=== PATIENT | female | born 1995 | race Caucasian/White ===

== ENCOUNTER 2019-12-29 13:36 | Emergency (ER) | payer OTHER ==
[2019-12-29 15:31] LABS: BLOOD UREA NITROGEN,BUN 18 mg/dL (7.0-18.0); CARBON DIOXIDE,CO2 25.6 mmol/L (21.0-32.0); CHLORIDE,CL 105 mmol/L (98-107); GLUCOSE RANDOM 84 mg/dL (74-106); SODIUM,NA 139 mmol/L (136-145)
--- NOTE | 2019-12-29 16:23 | CR ---
Chest: AP view of the chest was obtained. Comparison: No prior chest imaging. Heart size and mediastinum are normal. Lungs are clear with no acute parenchymal age. Bony structures are unremarkable. Impression: 1. Nothing acute is seen on AP chest x-ray. Diagnostic code #1 This report was dictated in MDT
--- NOTE | 2019-12-29 16:24 | EDM.PDOC ---
ED HPI GENERAL MEDICAL PROBLEM - General Chief Complaint: Respiratory Problem Stated Complaint: SOB Time Seen by Provider: 12/29/19 13:41 Source of Information: Reports: Patient History Limitations: Reports: No Limitations - History of Present Illness INITIAL COMMENTS - FREE TEXT/NARRATIVE: 24-year-old female with no past medical history presenting with complaints of shortness of breath, body aches, headache, and dental/facial pain. She reports a 4-day history of mild shortness of breath, not exertional in nature. Also reports body aches and intermittent headaches, no headache at the moment. No recent international travel or known COVID exposure. She does report about 3 to 4 days of right-sided upper dental pain that radiates to her right ear and the right side of her neck. No self treatment prior to arrival, no other complaints. right jaw Pain Score (Numeric/FACES): 5 - Related Data Allergies Allergy/AdvReac Type Severity Reaction Status Date / Time codeine Allergy Anaphylactic Verified 12/29/19 14:07 Shock epinephrine Allergy Other Verified 12/29/19 14:07 Home Meds: Home Meds Amoxicillin/Potassium Clav [Augmentin 875-125 Tablet] 1 each PO BID 10 Days #20 tablet 12/29/19 [Rx] Past Medical History - Past Health History Medical/Surgical History: Denies Medical/Surgical History - Infectious Disease History Infectious Disease History: Reports: Chicken Pox - Past Surgical History HEENT Surgical History: Reports: Tonsillectomy Other Musculoskeletal Surgeries/Procedures:: 6 leg surgery and 2 elbow Social & Family History - Family History Family Medical History: Noncontributory - Tobacco Use Smoking Status *Q: Never Smoker ED ROS GENERAL - Review of Systems Review Of Systems: See Below Constitutional: Reports: Malaise. Denies: Fever, Chills HEENT: Reports: Dental Pain, Ear Pain. Denies: Nose Pain, Rhinitis, Sinus Problem, Throat Pain, Throat Swelling Respiratory: Reports: Shortness of Breath. Denies: Wheezing, Pleuritic Chest Pain, Cough, Hemoptysis Cardiovascular: Denies: Chest Pain GI/Abdominal: Denies: Abdominal Pain, Nausea, Vomiting : Denies: Flank Pain Musculoskeletal: Denies: Neck Pain Skin: Denies: Rash Neurological: Reports: Headache. Denies: Numbness, Paresthesia, Change in Speech ED EXAM, GENERAL - Physical Exam Exam: See Below Free Text/Narrative:: Vital signs reviewed. Nursing notes reviewed. Constitutional: Awake, alert, non-distressed. Head: Normocephalic, atraumatic. Eyes: EOMI, conjunctiva normal, no discharge, no scleral icterus. Ears, Nose, Throat: External ears and nose normal, moist oral mucosa. Right TM and EAC appear normal. Uvula midline. Examination of the oral cavity reveals no evidence of swelling, no periapical abscess, soft floor of the mouth. No pain with tracheal tug. Handling secretions that difficulty. Neck: Supple, full range of motion. Cardiovascular: 2+ radial pulse, capillary refill less than 2 seconds. Pulmonary: normal work of breathing, no accessory muscle use. CTA BL. Abdomen/GI: nondistended Musculoskeletal: No deformities. Integumentary: Appropriate color for ethnicity, warm, dry, no pallor or jaundice, no rash. Neurologic: Alert, answering questions appropriately, normal speech, no facial droop, moving all extremities well. Psychiatric: Appropriate mood and affect, normal thought process. EKG INTERPRETATION EKG Interpretation Comments: 12-Lead ECG Interpretation Acquired: 2:01 PM Rhythm: Sinus arrhythmia Rate: 71 bpm [place]: Normal Intervals: Normal Ectopy: None Ischemic Changes: None apparent RV Strain: No obvious RV strain pattern. ST Segments/T-Waves: No notable changes Interpretation: Unremarkable Course - Vital Signs Text/Narrative:: Patient hemodynamically stable, afebrile, well-appearing, looks nontoxic. Differential diagnosis includes but is not limited to: Pneumonia, pneumothorax, pulmonary embolism, pleural effusion, acute coronary syndrome, coronavirus infection, anemia, cardiac valvular disturbance, arrhythmia, acute viral syndrome, etc. Laboratory work-up is reassuring. Negative troponin. Negative COVID testing. Normal hemoglobin. Normal electrolytes. Chest x-ray is clear. Twelve-lead EKG appears nonischemic. No evidence of a pulmonary infiltrate to suggest a pneumonia. Low risk by Wells PE criteria, PERC negative. Auscultation of heart and lungs unremarkable. Suspect an acute viral syndrome but patient is well- appearing at this moment. Examination of the oropharynx is concerning for acute pulpitis but there is no evidence of a serious infection or periapical abscess that requires drainage. We will prescribe a one-week course of Augmentin and recommend follow-up with a dental clinic. [id number] Tylenol and Motrin as needed for pain. Plan: Patient is stable to discharge home with outpatient primary care and dentistry follow-up. Strict emergency department return precautions were provided, patient indicated understanding. All questions were answered prior to departure. Discharged in good condition. Wells' Criteria for Pulmonary Embolism RESULT SUMMARY: 0.0 points Low risk group: 1.3% chance of PE in an ED population. Another study assigned scores ? 4 as PE Unlikely and had a 3% incidence of PE. INPUTS: Clinical signs and symptoms of DVT > 0 = No PE is #1 diagnosis OR equally likely > 0 = No Heart rate > 100 > 0 = No Immobilization at least 3 days OR surgery in the previous 4 weeks > 0 = No Previous, objectively diagnosed PE or DVT > 0 = No Hemoptysis > 0 = No Malignancy w/ treatment within 6 months or palliative > 0 = No PERC Rule for Pulmonary Embolism RESULT SUMMARY: 0 criteria No need for further workup, as <2% chance of PE. If no criteria are positive and clinicians pre-test probability is <15%, PERC Rule criteria are satisfied. INPUTS: Age ?50 > 0 = No HR ?100 > 0 = No O? sat on room air > 0 = No Unilateral leg swelling > 0 = No Hemoptysis > 0 = No Recent surgery or trauma > 0 = No Prior PE or DVT > 0 = No Hormone use > 0 = No Last Recorded V/S: Last Vital Signs Temp 37.7 C 12/29/19 13:36 Pulse 99 12/29/19 13:36 Resp 16 12/29/19 13:36 BP 120/71 12/29/19 16:48 Pulse Ox 98 12/29/19 13:36 - Orders/Labs/Meds Orders: Active Orders 24 hr Category Date Time Status EKG 12 Lead [EKG Documentation Completion] [RC] STAT Care 12/29/19 13:47 Active Isolation [COMM] Stat Oth 12/29/19 14:46 Active Labs: Laboratory Tests 12/29/19 12/29/19 12/29/19 Range/Units 14:57 14:57 14:57 WBC 6.25 (4.0-11.0) K/uL RBC 4.76 (4.30-5.90) M/uL Hgb 14.3 (12.0-16.0) g/dL Hct 44.0 (36.0-46.0) % MCV 92.4 (80.0-98.0) fL MCH 30.0 (27.0-32.0) pg MCHC 32.5 (31.0-37.0) g/dL RDW Std Deviation 44.0 (28.0-62.0) fl RDW Coeff of Mabel 13 (11.0-15.0) % Plt Count 294 (150-400) K/uL MPV 10.40 (7.40-12.00) fL Neut % (Auto) 63.5 (48.0-80.0) % Lymph % (Auto) 23.5 (16.0-40.0) % [place] % (Auto) 11.4 (0.0-15.0) % Eos % (Auto) 1.3 (0.0-7.0) % Baso % (Auto) 0.3 (0.0-1.5) % Neut # (Auto) 4.0 (1.4-5.7) K/uL Lymph # (Auto) 1.5 (0.6-2.4) K/uL [place] # (Auto) 0.7 (0.0-0.8) K/uL Eos # (Auto) 0.1 (0.0-0.7) K/uL Baso # (Auto) 0.0 (0.0-0.1) K/uL Nucleated RBC % 0.0 /100WBC Nucleated RBCs # 0 K/uL Sodium 139 (136-145) mmol/L Potassium 4.0 (3.5-5.1) mmol/L Chloride 105 (98-107) mmol/L Carbon Dioxide 25.6 (21.0-32.0) mmol/L BUN 18 (7.0-18.0) mg/dL Creatinine 0.7 (0.6-1.0) mg/dL Est Cr Clr Drug Dosing 100.74 mL/min Estimated GFR (MDRD) > 60.0 ml/min Glucose 84 (74-106) mg/dL Calcium 9.2 (8.5-10.1) mg/dL Troponin I < 0.050 (0.000-0.056) ng/mL HCG, Qual NEGATIVE (NEG) COVID-19 (YAMIL) (NEGATIVE) 12/29/19 Range/Units 16:12 WBC (4.0-11.0) K/uL RBC (4.30-5.90) M/uL Hgb (12.0-16.0) g/dL Hct (36.0-46.0) % MCV (80.0-98.0) fL MCH (27.0-32.0) pg MCHC (31.0-37.0) g/dL RDW Std Deviation (28.0-62.0) fl RDW Coeff of Mabel (11.0-15.0) % Plt Count (150-400) K/uL MPV (7.40-12.00) fL Neut % (Auto) (48.0-80.0) % Lymph % (Auto) (16.0-40.0) % [place] % (Auto) (0.0-15.0) % Eos % (Auto) (0.0-7.0) % Baso % (Auto) (0.0-1.5) % Neut # (Auto) (1.4-5.7) K/uL Lymph # (Auto) (0.6-2.4) K/uL [place] # (Auto) (0.0-0.8) K/uL Eos # (Auto) (0.0-0.7) K/uL Baso # (Auto) (0.0-0.1) K/uL Nucleated RBC % /100WBC Nucleated RBCs # K/uL Sodium (136-145) mmol/L Potassium (3.5-5.1) mmol/L Chloride (98-107) mmol/L Carbon Dioxide (21.0-32.0) mmol/L BUN (7.0-18.0) mg/dL Creatinine (0.6-1.0) mg/dL Est Cr Clr Drug Dosing mL/min Estimated GFR (MDRD) ml/min Glucose (74-106) mg/dL Calcium (8.5-10.1) mg/dL Troponin I (0.000-0.056) ng/mL HCG, Qual (NEG) COVID-19 (YAMIL) NEGATIVE (NEGATIVE) Departure - Departure Time of Disposition: 16:49 Disposition: Home, Self-Care 01 Condition: Good Clinical Impression: Acute viral syndrome, Encounter for laboratory testing for COVID-19 virus, Acute pulpitis Dyspnea Qualifiers: Dyspnea type: unspecified Qualified Code(s): R06.00 - Dyspnea, unspecified - Discharge Information *PRESCRIPTION DRUG MONITORING PROGRAM REVIEWED*: Not Applicable *COPY OF PRESCRIPTION DRUG MONITORING REPORT IN PATIENT JERED: Not Applicable Prescriptions: Amoxicillin/Potassium Clav [Augmentin 875-125 Tablet] 1 each PO BID 10 Days #20 tablet Instructions: Shortness of Breath, Adult, Viral Respiratory Infection Referrals: [facility] - Family Practice [Provider Group] - 1 Week (For follow-up of symptoms.) Forms: ED Department Discharge Additional Instructions: Thank you for choosing the [facility] emergency department in [place] for your medical needs today. It was a pleasure caring for you. You were seen in the emergency department for shortness of breath and dental/facial pain. Your COVID testing was negative. Your x-rays, blood work, and EKG look reassuring. There is no evidence of a pneumonia or other respiratory bacterial infection that would require antibiotics. I would follow-up with a primary doctor the next few days for reevaluation if you are still having the symptoms. If your breathing gets worse she should come back to the ER immediately. I am also concerned that your dental filling fell out and you may have an exposed nerve root on one of your teeth, which could be causing your dental/facial pain. We prescribed some antibiotics. You can take [id number] Tylenol and Motrin as needed for pain. I would follow-up with a dentist for reevaluation of this complaint. Please return the emergency department immediately if your symptoms worsen or if you feel worse. The following information is given to patients seen in the emergency department who are being discharged. This information is to outline your options for follow-up care. We provide all patients seen in our emergency department with a follow-up referral. The need for follow-up, as well as the timing and circumstances, are variable depending upon the specifics of your emergency department visit. If you don't have a primary care physician on staff, we will provide you with a referral. We always advise you to contact your personal physician following an emergency department visit to inform them of the circumstance of the visit and for follow-up with them and/or the need for any referrals to a consulting specialist. The emergency department will also refer you to a specialist when appropriate. This referral assures that you have the opportunity for follow-up care with a specialist. All of these measure are taken in an effort to provide you with optimal care, which includes your follow-up. Under all circumstances we always encourage you to contact your private physician who remains a resource for coordinating your care. When calling for follow-up care, please make the office aware that this follow-up is from your recent emergency room visit. If for any reason you are refused follow-up, please contact the [facility] Emergency Department at and asked to speak to the emergency department charge nurse. If you do not have a primary care physician that is caring for you, you can contact these clinics below to set up an appointment to establish care: [facility] - Primary [facility] [address] [place] [address] [place] [address] Sepsis Event Note (ED) - Evaluation Sepsis Screening Result: No Definite Risk - Focused Exam Vital Signs: Vital Signs Temp Pulse Resp BP Pulse Ox 12/29/19 16:48 120/71 12/29/19 13:36 37.7 C 99 16 120/70 98 - My Orders Last 24 Hours: My Active Orders 12/29/19 13:47 EKG 12 Lead [EKG Documentation Completion] [RC] STAT 12/29/19 14:46 Isolation [COMM] Stat - Assessment/Plan Last 24 Hours: My Active Orders 12/29/19 13:47 EKG 12 Lead [EKG Documentation Completion] [RC] STAT 12/29/19 14:46 Isolation [COMM] Stat
== END 2019-12-29 17:07 | disposition home or self-care (01) ==
LOC: MW.ED 13:36
DX: B34.9 Viral infection, unspecified (principal); R06.02 Shortness of breath; K04.01 Reversible pulpitis; Z20.828 Contact with and (suspected) exposure to other viral communicable diseases; Z88.5 Allergy status to narcotic agent; Z88.8 Allergy status to other drugs, medicaments and biological substances
CPT/HCPCS: 36415; 71045; 71045-26; 80048; 84484; 84703; 85025; 93005; 99283; 99285-25; U0002

== ENCOUNTER 2020-05-31 14:52 | Emergency (ER) | payer SELFPAY ==
[2020-05-31] MEDS ORDERED: Sodium Chloride 0.9% 2.5 ML Syringe FLUSH PRN (15:13)
[2020-05-31] MEDS ORDERED: Sodium Chloride 0.9% 10 ML Syringe FLUSH PRN (15:13)
--- NOTE | 2020-05-31 15:22 | EDM.PDOC ---
ED HPI GENERAL MEDICAL PROBLEM - General Chief Complaint: Gastrointestinal Problem Stated Complaint: ESMER HUBBARD Time Seen by Provider: 05/31/20 14:54 Source of Information: Reports: Patient, Old Records History Limitations: Reports: No Limitations - History of Present Illness INITIAL COMMENTS - FREE TEXT/NARRATIVE: This is a very pleasant 24-year-old female with a past medical history of fibromyalgia and restless leg syndrome presenting with multiple complaints. She states that she was seen in a clinic through the [facility] and [facility] yesterday and diagnosed with a UTI. She was started on Bactrim. She reports significant dysuria over the past 2 to 3 days. She states that she took 28 to 30 tablets of Azo, last dose about 6:00 yesterday morning. She reports a 2-day history of fatigue and feeling extremely tired. Yesterday, she was flying to [place], [place] and is concerned that she may have lost consciousness while sitting in her airplane seat. She states that she drifted off and then woke up, but no one was trying to shake her or wake her up, she is concerned that she may have lost consciousness but no one witnessed exactly what happened. She complains of nausea for the past 2 days or so. Earlier today, the patient felt extremely lightheaded when she stood up to try to walk. She was concerned that she may lose consciousness. She also reports substernal chest discomfort, constant since about 5:00 AM yesterday along with some shortness of breath. She complains of feeling short of breath right now in the emergency department. Denies fever, chills, cough, vomiting, diarrhea, hematemesis, bloody stools, vaginal bleeding, rash. Patient denies history of venous thromboembolism, lower extremity pain or swelling, hemoptysis, recent surgery or immobilization or long travel, history of active malignancy, or hormonal medication/product usage. ROS: A 10-point review of systems was negative, except as noted in the HPI (or in the ROS section of this note). Past medical history: Reviewed, no additional pertinent history. Surgical history: Reviewed in system, no additional pertinent history. Social history: Reviewed in system, no additional pertinent history. Family history: Reviewed in system, no additional pertinent history. PHYSICAL EXAM Vital signs reviewed. Nursing notes reviewed. Constitutional: Awake, alert, non-distressed. Head: Normocephalic, atraumatic. Eyes: EOMI, conjunctiva normal, no discharge, no scleral icterus. Ears, Nose, Throat: External ears and nose normal, moist oral mucosa. Cardiovascular: Tachycardic, 2+ radial pulses bilaterally, capillary refill less than 2 seconds. No lower extremity edema. Pulmonary: normal work of breathing, no accessory muscle use. Abdomen/GI: Soft, nontender, nondistended, no guarding or rigidity, no masses. No CVA tenderness. Musculoskeletal: No deformities. Integumentary: Appropriate color for ethnicity, warm, dry, no pallor or jaundice, no rash. Neurologic: Alert, answering questions appropriately, normal speech, no facial droop, moving all extremities well. Psychiatric: Appropriate mood and affect, normal thought process. This patient was seen and evaluated during the 2019 SARS-CoV-2 novel coronavirus pandemic period. Community viral transmission is ongoing at time of this encounter and the emergency department is operating under pandemic response procedures. - Related Data Allergies Allergy/AdvReac Type Severity Reaction Status Date / Time codeine Allergy Anaphylactic Verified 05/31/20 15:06 Shock epinephrine Allergy Other Verified 05/31/20 15:06 Home Meds: Home Meds Cefpodoxime [Vantin] 200 mg PO BID 14 Days #28 tab 05/31/20 [Rx] Gabapentin [Neurontin] 600 mg PO QID 05/31/20 [History] Pumpkin Seed Extract/Soy Germ [Azo Bladder Control Capsule] 1 tab PO DAILY [History] Sulfamethoxazole/Trimethoprim [Bactrim Ds Tablet] 1 tab PO DAILY 05/31/20 [History] Venlafaxine HCl [Venlafaxine ER] 1 tab PO DAILY 05/31/20 [History] Zolpidem [Ambien] 5 mg PO BEDTIME PRN 05/31/20 [History] norethindrone-e.estradioL-iron [Lo Loestrin Fe 1-10] 1 tab PO DAILY 05/31/20 [History] traMADol HCl [Tramadol HCl] 100 mg PO TID PRN 05/31/20 [History] Past Medical History - Past Health History Medical/Surgical History: Denies Medical/Surgical History Genitourinary History: Reports: Renal Calculus, UTI, Recurrent Psychiatric History: Reports: Anxiety Dermatologic History: Reports: Urticaria - Infectious Disease History Infectious Disease History: Reports: Chicken Pox - Past Surgical History HEENT Surgical History: Reports: Adenoidectomy, Tonsillectomy Other Musculoskeletal Surgeries/Procedures:: 6 leg surgery and 2 elbow Social & Family History - Family History Family Medical History: No Pertinent Family History - Recreational Drug Use Recreational Drug Use: No ED ROS GENERAL - Review of Systems Review Of Systems: See Below ED EXAM, GENERAL - Physical Exam Exam: See Below #1 Interpretation EKG Interpretation Comments: 12-Lead ECG Interpretation Acquired: 3:19 PM Rhythm: Sinus rhythm Rate: 88 bpm [place]: Normal Intervals: Normal Ectopy: None RV Strain: No obvious RV strain pattern. ST Segments/T-Waves: Inverted T waves in V3, biphasic T waves in V4 Acute Ischemic Changes: None apparent Interpretation: No STEMI. Nonspecific T wave changes, no evidence of preexcitation, no delta wave, no QT prolongation, no Brugada pattern. No prior ECG for comparison. Course - Vital Signs Text/Narrative:: 24-year-old female presenting with concern for cystitis, intermittent lightheadedness, fatigue, 24+ hours of chest discomfort and shortness of breath, near syncope, dysuria. Differential diagnosis includes but is not limited to: UTI, pyelonephritis, anemia, electrolyte disturbance, arrhythmia, structural cardiac problem, acute coronary syndrome, pulmonary embolism, sepsis, and many others. Twelve-lead EKG shows no preexcitation pattern, arrhythmia, ectopy, or suggestion of Brugada pattern. Initial blood work does show her lactate is elevated, there is no leukocytosis. 4:43 PM: Mild normocytic anemia at 11.9, normal platelets. Venous blood gas shows normal pH but slightly low venous PO2 at 26, slightly low CO2 at 22, with a normal bicarbonate. Urinalysis has positive nitrites, trace leukocyte esterase, 2+ bacteria, and large occult blood, suggesting infection. We are awaiting the metabolic panel, troponin, and toxicity labs including acetaminophen and salicylates, we are also waiting on a two-view chest x-ray series. We are giving IV fluids. 6:03 PM: Chest x-rays are clear. IV fluids and antibiotics are infusing, we will recheck the lactate and venous blood gas after fluids are finished. Patient is resting comfortably. 7:04 PM: On recheck, lactate is now normal, venous blood gas is essentially unchanged for the patient, she denies any shortness of breath. She has received a dose of IV ceftriaxone. I added on a urine culture. Salicylates and acetaminophen levels are normal. The patient is feeling much better. I believe that her presentation is most likely due to acute pyelonephritis. I did discuss the case with poison control, patient shows no overt signs of methemoglobinemia such as cyanosis or hypoxia, and poison control is agreeable with the plan of discharge. Its been at least 36 hours since her last dose of Azo so I would expect her to show symptoms at this point. We are going to plan to discharge her home with a new prescription for a cephalosporin antibiotic. The patient states she has leftover ondansetron at home and she can take this every 8 hours as needed for any nausea or vomiting along with Tylenol or ibuprofen. Will encourage her to follow-up with her primary physician in the next few days for reevaluation. Plan: Patient is stable to discharge home with outpatient primary care clinic follow-up. Strict emergency department return precautions were provided, patient indicated understanding. All questions were answered prior to departure. Discharged in good condition. Last Recorded V/S: Last Vital Signs Temp 36.8 C 05/31/20 15:17 Pulse 92 05/31/20 15:54 Resp 16 05/31/20 15:54 BP 139/68 05/31/20 15:54 Pulse Ox 98 05/31/20 15:54 - Orders/Labs/Meds Orders: Active Orders 24 hr Category Date Time Status EKG Documentation Completion [RC] STAT Care 05/31/20 15:13 Active POC Glucose [Blood Glucose Check, Bedside] [RC] ONETIME Care 05/31/20 14:57 Active Pulse Oximetry [RC] ASDIRECTED Care 05/31/20 15:13 Active CULTURE URINE [] Stat Lab 05/31/20 15:45 Received Sodium Chloride 0.9% [Saline Flush] Med 05/31/20 15:13 Active 10 ml FLUSH ASDIRECTED PRN Sodium Chloride 0.9% [Saline Flush] Med 05/31/20 15:13 Active 2.5 ml FLUSH ASDIRECTED PRN Saline Lock Insert [OM.PC] Stat Oth 05/31/20 15:14 Ordered Medication Orders Sodium Chloride (Saline Flush) 10 ml FLUSH ASDIRECTED PRN PRN Reason: Keep Vein Open Last Admin: 05/31/20 16:17 Dose: 10 ml Documented by: IVETH Sodium Chloride (Saline Flush) 2.5 ml FLUSH ASDIRECTED PRN PRN Reason: Keep Vein Open Last Admin: 05/31/20 16:15 Dose: 2.5 ml Documented by: IVETH Labs: Laboratory Tests 05/31/20 05/31/20 05/31/20 Range/Units 15:45 16:07 16:07 WBC (4.0-11.0) K/uL RBC (4.30-5.90) M/uL Hgb (12.0-16.0) g/dL Hct (36.0-46.0) % MCV (80.0-98.0) fL MCH (27.0-32.0) pg MCHC (31.0-37.0) g/dL RDW Std Deviation (28.0-62.0) fl RDW Coeff of Mabel (11.0-15.0) % Plt Count (150-400) K/uL MPV (7.40-12.00) fL Neut % (Auto) (48.0-80.0) % Lymph % (Auto) (16.0-40.0) % Emmons % (Auto) (0.0-15.0) % Eos % (Auto) (0.0-7.0) % Baso % (Auto) (0.0-1.5) % Neut # (Auto) (1.4-5.7) K/uL Lymph # (Auto) (0.6-2.4) K/uL Emmons # (Auto) (0.0-0.8) K/uL Eos # (Auto) (0.0-0.7) K/uL Baso # (Auto) (0.0-0.1) K/uL Nucleated RBC % /100WBC Nucleated RBCs # K/uL D-Dimer, Quantitative (0.0-0.50) mg/L FEU VBG pH (7.31-7.41) VBG pCO2 (35-45) mmHG VBG pO2 (30-40) mmHG VBG HCO3 (22-30) mEq/L VBG Total CO2 (41-51) mmol/L VBG Base Excess (-3.0-3.0) Lactate (0.20-2.00) mmol/L Sodium 137 (136-145) mmol/L Potassium 3.7 (3.5-5.1) mmol/L Chloride 101 (98-107) mmol/L Carbon Dioxide 23.3 (21.0-32.0) mmol/L BUN 14 (7.0-18.0) mg/dL Creatinine 1.2 H (0.6-1.0) mg/dL Est Cr Clr Drug Dosing 58.77 mL/min Estimated GFR (MDRD) 54.3 ml/min Glucose 110 H (74-106) mg/dL Calcium 9.1 (8.5-10.1) mg/dL Total Bilirubin 0.2 (0.2-1.0) mg/dL AST 16 (15-37) IU/L ALT 17 (14-63) IU/L Alkaline Phosphatase 52 (46-116) U/L Troponin I < 0.050 (0.000-0.056) ng/mL Total Protein 7.4 (6.4-8.2) g/dL Albumin 4.0 (3.4-5.0) g/dL Globulin 3.4 (2.6-4.0) g/dL Albumin/Globulin Ratio 1.2 (0.9-1.6) HCG, Qual NEGATIVE (NEG) Urine Color YELLOW Urine Appearance HAZY Urine pH 7.0 (5.0-8.0) Ur Specific [place] 1.015 (1.001-1.035) Urine Protein NEGATIVE (NEGATIVE) mg/dL Urine Glucose (UA) NEGATIVE (NEGATIVE) mg/dL Urine Ketones TRACE H (NEGATIVE) mg/dL Urine Occult Blood LARGE H (NEGATIVE) Urine Nitrite POSITIVE H (NEGATIVE) Urine Bilirubin NEGATIVE (NEGATIVE) Urine Urobilinogen 1.0 (<2.0) EU/dL Ur Leukocyte Esterase TRACE H (NEGATIVE) Urine RBC 0-4 (0-2/HPF) Urine WBC 3-6 (0-5/HPF) Ur Epithelial Cells MODERATE (NONE-FEW) Urine Bacteria 2+ H (NEGATIVE) Salicylates (0-20) mg/dL Acetaminophen ug/mL 05/31/20 05/31/20 05/31/20 Range/Units 16:07 16:07 16:07 WBC 7.72 (4.0-11.0) K/uL RBC 4.03 L (4.30-5.90) M/uL Hgb 11.9 L (12.0-16.0) g/dL Hct 38.1 (36.0-46.0) % MCV 94.5 (80.0-98.0) fL MCH 29.5 (27.0-32.0) pg MCHC 31.2 (31.0-37.0) g/dL RDW Std Deviation 43.7 (28.0-62.0) fl RDW Coeff of Mabel 13 (11.0-15.0) % Plt Count 300 (150-400) K/uL MPV 10.20 (7.40-12.00) fL Neut % (Auto) 77.3 (48.0-80.0) % Lymph % (Auto) 11.7 L (16.0-40.0) % Emmons % (Auto) 8.8 (0.0-15.0) % Eos % (Auto) 1.9 (0.0-7.0) % Baso % (Auto) 0.3 (0.0-1.5) % Neut # (Auto) 6.0 H (1.4-5.7) K/uL Lymph # (Auto) 0.9 (0.6-2.4) K/uL Emmons # (Auto) 0.7 (0.0-0.8) K/uL Eos # (Auto) 0.2 (0.0-0.7) K/uL Baso # (Auto) 0.0 (0.0-0.1) K/uL Nucleated RBC % 0.0 /100WBC Nucleated RBCs # 0 K/uL D-Dimer, Quantitative 0.37 (0.0-0.50) mg/L FEU VBG pH (7.31-7.41) VBG pCO2 (35-45) mmHG VBG pO2 (30-40) mmHG VBG HCO3 (22-30) mEq/L VBG Total CO2 (41-51) mmol/L VBG Base Excess (-3.0-3.0) Lactate (0.20-2.00) mmol/L Sodium (136-145) mmol/L Potassium (3.5-5.1) mmol/L Chloride (98-107) mmol/L Carbon Dioxide (21.0-32.0) mmol/L BUN (7.0-18.0) mg/dL Creatinine (0.6-1.0) mg/dL Est Cr Clr Drug Dosing mL/min Estimated GFR (MDRD) ml/min Glucose (74-106) mg/dL Calcium (8.5-10.1) mg/dL Total Bilirubin (0.2-1.0) mg/dL AST (15-37) IU/L ALT (14-63) IU/L Alkaline Phosphatase (46-116) U/L Troponin I (0.000-0.056) ng/mL Total Protein (6.4-8.2) g/dL Albumin (3.4-5.0) g/dL Globulin (2.6-4.0) g/dL Albumin/Globulin Ratio (0.9-1.6) HCG, Qual (NEG) Urine Color Urine Appearance Urine pH (5.0-8.0) Ur Specific [place] (1.001-1.035) Urine Protein (NEGATIVE) mg/dL Urine Glucose (UA) (NEGATIVE) mg/dL Urine Ketones (NEGATIVE) mg/dL Urine Occult Blood (NEGATIVE) Urine Nitrite (NEGATIVE) Urine Bilirubin (NEGATIVE) Urine Urobilinogen (<2.0) EU/dL Ur Leukocyte Esterase (NEGATIVE) Urine RBC (0-2/HPF) Urine WBC (0-5/HPF) Ur Epithelial Cells (NONE-FEW) Urine Bacteria (NEGATIVE) Salicylates 2.1 (0-20) mg/dL Acetaminophen <2.0 ug/mL 05/31/20 05/31/20 05/31/20 Range/Units 16:07 16:07 18:43 WBC (4.0-11.0) K/uL RBC (4.30-5.90) M/uL Hgb (12.0-16.0) g/dL Hct (36.0-46.0) % MCV (80.0-98.0) fL MCH (27.0-32.0) pg MCHC (31.0-37.0) g/dL RDW Std Deviation (28.0-62.0) fl RDW Coeff of Mabel (11.0-15.0) % Plt Count (150-400) K/uL MPV (7.40-12.00) fL Neut % (Auto) (48.0-80.0) % Lymph % (Auto) (16.0-40.0) % Emmons % (Auto) (0.0-15.0) % Eos % (Auto) (0.0-7.0) % Baso % (Auto) (0.0-1.5) % Neut # (Auto) (1.4-5.7) K/uL Lymph # (Auto) (0.6-2.4) K/uL Emmons # (Auto) (0.0-0.8) K/uL Eos # (Auto) (0.0-0.7) K/uL Baso # (Auto) (0.0-0.1) K/uL Nucleated RBC % /100WBC Nucleated RBCs # K/uL D-Dimer, Quantitative (0.0-0.50) mg/L FEU VBG pH 7.39 7.37 (7.31-7.41) VBG pCO2 40 44 (35-45) mmHG VBG pO2 26 L 28 L (30-40) mmHG VBG HCO3 24 25 (22-30) mEq/L VBG Total CO2 22 L 24 L (41-51) mmol/L VBG Base Excess -1.2 -0.1 (-3.0-3.0) Lactate 3.4 H* (0.20-2.00) mmol/L Sodium (136-145) mmol/L Potassium (3.5-5.1) mmol/L Chloride (98-107) mmol/L Carbon Dioxide (21.0-32.0) mmol/L BUN (7.0-18.0) mg/dL Creatinine (0.6-1.0) mg/dL Est Cr Clr Drug Dosing mL/min Estimated GFR (MDRD) ml/min Glucose (74-106) mg/dL Calcium (8.5-10.1) mg/dL Total Bilirubin (0.2-1.0) mg/dL AST (15-37) IU/L ALT (14-63) IU/L Alkaline Phosphatase (46-116) U/L Troponin I (0.000-0.056) ng/mL Total Protein (6.4-8.2) g/dL Albumin (3.4-5.0) g/dL Globulin (2.6-4.0) g/dL Albumin/Globulin Ratio (0.9-1.6) HCG, Qual (NEG) Urine Color Urine Appearance Urine pH (5.0-8.0) Ur Specific [place] (1.001-1.035) Urine Protein (NEGATIVE) mg/dL Urine Glucose (UA) (NEGATIVE) mg/dL Urine Ketones (NEGATIVE) mg/dL Urine Occult Blood (NEGATIVE) Urine Nitrite (NEGATIVE) Urine Bilirubin (NEGATIVE) Urine Urobilinogen (<2.0) EU/dL Ur Leukocyte Esterase (NEGATIVE) Urine RBC (0-2/HPF) Urine WBC (0-5/HPF) Ur Epithelial Cells (NONE-FEW) Urine Bacteria (NEGATIVE) Salicylates (0-20) mg/dL Acetaminophen ug/mL 05/31/20 Range/Units 18:43 WBC (4.0-11.0) K/uL RBC (4.30-5.90) M/uL Hgb (12.0-16.0) g/dL Hct (36.0-46.0) % MCV (80.0-98.0) fL MCH (27.0-32.0) pg MCHC (31.0-37.0) g/dL RDW Std Deviation (28.0-62.0) fl RDW Coeff of Mabel (11.0-15.0) % Plt Count (150-400) K/uL MPV (7.40-12.00) fL Neut % (Auto) (48.0-80.0) % Lymph % (Auto) (16.0-40.0) % Emmons % (Auto) (0.0-15.0) % Eos % (Auto) (0.0-7.0) % Baso % (Auto) (0.0-1.5) % Neut # (Auto) (1.4-5.7) K/uL Lymph # (Auto) (0.6-2.4) K/uL Emmons # (Auto) (0.0-0.8) K/uL Eos # (Auto) (0.0-0.7) K/uL Baso # (Auto) (0.0-0.1) K/uL Nucleated RBC % /100WBC Nucleated RBCs # K/uL D-Dimer, Quantitative (0.0-0.50) mg/L FEU VBG pH (7.31-7.41) VBG pCO2 (35-45) mmHG VBG pO2 (30-40) mmHG VBG HCO3 (22-30) mEq/L VBG Total CO2 (41-51) mmol/L VBG Base Excess (-3.0-3.0) Lactate 0.9 (0.20-2.00) mmol/L Sodium (136-145) mmol/L Potassium (3.5-5.1) mmol/L Chloride (98-107) mmol/L Carbon Dioxide (21.0-32.0) mmol/L BUN (7.0-18.0) mg/dL Creatinine (0.6-1.0) mg/dL Est Cr Clr Drug Dosing mL/min Estimated GFR (MDRD) ml/min Glucose (74-106) mg/dL Calcium (8.5-10.1) mg/dL Total Bilirubin (0.2-1.0) mg/dL AST (15-37) IU/L ALT (14-63) IU/L Alkaline Phosphatase (46-116) U/L Troponin I (0.000-0.056) ng/mL Total Protein (6.4-8.2) g/dL Albumin (3.4-5.0) g/dL Globulin (2.6-4.0) g/dL Albumin/Globulin Ratio (0.9-1.6) HCG, Qual (NEG) Urine Color Urine Appearance Urine pH (5.0-8.0) Ur Specific [place] (1.001-1.035) Urine Protein (NEGATIVE) mg/dL Urine Glucose (UA) (NEGATIVE) mg/dL Urine Ketones (NEGATIVE) mg/dL Urine Occult Blood (NEGATIVE) Urine Nitrite (NEGATIVE) Urine Bilirubin (NEGATIVE) Urine Urobilinogen (<2.0) EU/dL Ur Leukocyte Esterase (NEGATIVE) Urine RBC (0-2/HPF) Urine WBC (0-5/HPF) Ur Epithelial Cells (NONE-FEW) Urine Bacteria (NEGATIVE) Salicylates (0-20) mg/dL Acetaminophen ug/mL Meds: Medications Generic Name Dose Route Start Last Admin Trade Name Kalani PRN Reason Stop Dose Admin Sodium Chloride 10 ml 05/31/20 15:13 05/31/20 16:17 Saline Flush FLUSH 10 ml ASDIRECTED PRN Administration Keep Vein Open Sodium Chloride 2.5 ml 05/31/20 15:13 05/31/20 16:15 Saline Flush FLUSH 2.5 ml ASDIRECTED PRN Administration Keep Vein Open Discontinued Medications Generic Name Dose Route Start Last Admin Trade Name Freq PRN Reason Stop Dose Admin Lactated Ringer's 1,000 mls @ 999 mls/hr 05/31/20 15:54 05/31/20 16:15 Ringers, Lactated IV 05/31/20 16:54 999 mls/hr .BOLUS ONE Administration Lactated Ringer's 1,000 mls @ 999 mls/hr 05/31/20 16:41 05/31/20 17:18 Ringers, Lactated IV 05/31/20 17:41 999 mls/hr .BOLUS ONE Administration Ceftriaxone Sodium 1 gm/ 50 mls @ 200 mls/hr 05/31/20 16:55 05/31/20 17:24 Sodium Chloride IV 05/31/20 17:09 Not Given ONETIME ONE Ceftriaxone Sodium/Dextrose 1 50 mls @ 100 mls/hr 05/31/20 17:13 05/31/20 17:23 gm/ Premix IV 05/31/20 17:42 100 mls/hr ONETIME ONE Administration Ceftriaxone Sodium/Dextrose Confirm 05/31/20 17:15 05/31/20 17:23 Rocephin In Dextrose,Iso-Osm 1 Gm/50 Ml Administered 05/31/20 17:16 Not Given Dose 50 mls @ as directed .ROUTE .STK-MED ONE Ondansetron HCl 4 mg 05/31/20 15:54 05/31/20 16:15 Zofran IVPUSH 05/31/20 15:55 4 mg ONETIME ONE Administration Departure - Departure Time of Disposition: 19:09 Disposition: Home, Self-Care 01 Condition: Good Clinical Impression: Pyelonephritis - Discharge Information *PRESCRIPTION DRUG MONITORING PROGRAM REVIEWED*: Not Applicable *COPY OF PRESCRIPTION DRUG MONITORING REPORT IN PATIENT JERED: Not Applicable Prescriptions: Cefpodoxime [Vantin] 200 mg PO BID 14 Days #28 tab Instructions: Pyelonephritis, Adult, [id number] Forms: ED Department Discharge Additional Instructions: You were seen in the emergency department for painful urination, lightheadedness, possibly fainting. Your blood work at this point is reassuring. I think that your symptoms are likely due to a kidney infection called pyelonephritis. We gave you some IV fluids and monitored your vital signs for several hours. You were given IV antibiotics. I would like for you to discontinue the antibiotic you are taking and roll picker the antibiotic I prescribed to the pharmacy and start taking it tomorrow. Be sure you finish the entire bottle. I recommend [id number] extra strength acetaminophen (1000 mg every 6 hours). You can also use a heating pad for pain. You told me that you have leftover Zofran at home, you can take this as directed for nausea or vomiting. Please follow-up with your primary doctor the next 3 to 4 days for reevaluation. Warning signs to come back to the ER include: Severe flank pain, severe nausea or vomiting, recurrent lightheadedness, or any other new or concerning symptoms. Please return the emergency department immediately if your symptoms worsen or if you feel worse. Thank you for choosing the [facility] emergency department in [place] for your medical needs today. It was a pleasure caring for you. The following information is given to patients seen in the emergency department who are being discharged. This information is to outline your options for follow-up care. We provide all patients seen in our emergency department with a follow-up referral. The need for follow-up, as well as the timing and circumstances, are variable depending upon the specifics of your emergency department visit. If you don't have a primary care physician on staff, we will provide you with a referral. We always advise you to contact your personal physician following an emergency department visit to inform them of the circumstance of the visit and for follow-up with them and/or the need for any referrals to a consulting specialist. The emergency department will also refer you to a specialist when appropriate. This referral assures that you have the opportunity for follow-up care with a specialist. All of these measure are taken in an effort to provide you with optimal care, which includes your follow-up. Under all circumstances we always encourage you to contact your private physician who remains a resource for coordinating your care. When calling for follow-up care, please make the office aware that this follow-up is from your recent emergency room visit. If for any reason you are refused follow-up, please contact the [facility] Emergency Department at and asked to speak to the emergency department charge nurse. If you do not have a primary care physician that is caring for you, you can contact these clinics below to set up an appointment to establish care: [facility] - Primary Care [address] [place] [id number] [facility] [address] [place] [id number] Sepsis Event Note (ED) - Evaluation Sepsis Screening Result: No Definite Risk - Focused Exam Vital Signs: Vital Signs Temp Temp Pulse Resp BP Pulse Ox 05/31/20 15:54 92 16 139/68 98 05/31/20 15:17 35.9 C L 36.8 C 89 16 127/75 98 05/31/20 15:02 36.6 C 106 H 20 133/64 99 - My Orders Last 24 Hours: My Active Orders 05/31/20 14:57 POC Glucose [Blood Glucose Check, Bedside] [RC] ONETIME 05/31/20 15:13 EKG Documentation Completion [RC] STAT Pulse Oximetry [RC] ASDIRECTED Sodium Chloride 0.9% [Saline Flush] 10 ml FLUSH ASDIRECTED PRN Sodium Chloride 0.9% [Saline Flush] 2.5 ml FLUSH ASDIRECTED PRN 05/31/20 15:14 Saline Lock Insert [OM.PC] Stat 05/31/20 15:45 CULTURE URINE [RM] Stat - Assessment/Plan Last 24 Hours: My Active Orders 05/31/20 14:57 POC Glucose [Blood Glucose Check, Bedside] [RC] ONETIME 05/31/20 15:13 EKG Documentation Completion [RC] STAT Pulse Oximetry [RC] ASDIRECTED Sodium Chloride 0.9% [Saline Flush] 10 ml FLUSH ASDIRECTED PRN Sodium Chloride 0.9% [Saline Flush] 2.5 ml FLUSH ASDIRECTED PRN 05/31/20 15:14 Saline Lock Insert [OM.PC] Stat 05/31/20 15:45 CULTURE URINE [RM] Stat
[2020-05-31] MEDS ORDERED: Lactated Ringers 1,000 ML IV ONE ×2 (15:54→16:41)
[2020-05-31] MEDS ORDERED: Ondansetron 4 MG/2 ML SDV IVPUSH ONE (15:54)
[2020-05-31 16:50] LABS: ACETAMINOPHEN <2.0 ug/mL
[2020-05-31] MEDS ORDERED: cefTRIAXone 1 GM in Sodium Chloride 0.9% 50 ML IV ONE (16:55)
[2020-05-31 16:56] LABS: BLOOD UREA NITROGEN,BUN 14 mg/dL (7.0-18.0); CARBON DIOXIDE,CO2 23.3 mmol/L (21.0-32.0); CHLORIDE,CL 101 mmol/L (98-107); GLUCOSE RANDOM 110 mg/dL (74-106); POTASSIUM,K 3.7 mmol/L (3.5-5.1); SODIUM,NA 137 mmol/L (136-145)
[2020-05-31] MEDS ORDERED: cefTRIAXone 1 GM in Premix Bag 1 BAG IV ONE (17:13)
--- NOTE | 2020-05-31 17:45 | CR ---
Indication: Dyspnea Technique: Chest 2 views Comparison: December 29, 2019. Findings: Cardiovascular and mediastinum: Heart size and vasculature are normal in caliber and appearance. Lungs and pleural spaces: Lungs are clear. No sign of infiltrate or mass. No sign of pleural effusion. No pneumothorax. Bones and soft tissues: No significant findings. Impression: Negative chest. Dictated by Cody Sanchez MD @ May 31 2020 5:34PM Signed by Dr. Cody Sanchez @ May 31 2020 5:43PM
== END 2020-05-31 19:20 | disposition home or self-care (01) ==
LOC: MW.ED 14:52
DX: N12 Tubulo-interstitial nephritis, not specified as acute or chronic (principal); F41.9 Anxiety disorder, unspecified; Z88.5 Allergy status to narcotic agent; Z88.8 Allergy status to other drugs, medicaments and biological substances; Z79.899 Other long term (current) drug therapy
CPT/HCPCS: 36415; 71046; 80053; 80307; 81001; 82803; 82962; 83605; 84484; 84703; 85025; 85379; 87086; 93005; 96365; 96375; 99285; J0696; J2405; J7120; 93010; 99283

== ENCOUNTER 2020-06-14 22:40 | Emergency (ER) | payer OTHER ==
[2020-06-14] MEDS: Ondansetron 4 MG/2 ML SDV IVPUSH ONE (23:21)
[2020-06-14] MEDS: Sodium Chloride 0.9% 1,000 ML IV ONE (23:21)
[2020-06-14] MEDS: Ketorolac 15 MG/ML SDV IVPUSH ONE (23:21)
[2020-06-14] MEDS: Sodium Chloride 0.9% 2.5 ML Syringe FLUSH PRN (23:22)
[2020-06-14] MEDS: Sodium Chloride 0.9% 10 ML Syringe FLUSH PRN (23:22)
[2020-06-14 23:44] LABS: BLOOD UREA NITROGEN,BUN 17 mg/dL (7.0-18.0); CARBON DIOXIDE,CO2 26.4 mmol/L (21.0-32.0); CHLORIDE,CL 103 mmol/L (98-107); GLUCOSE RANDOM 100 mg/dL (74-106); LIPASE 90 U/L (73-393); POTASSIUM,K 3.7 mmol/L (3.5-5.1); SODIUM,NA 143 mmol/L (136-145)
[2020-06-15] MEDS: Iopamidol 755 MG/ML 500 ML Multipack Bottle IVPUSH STA (00:09)
--- NOTE | 2020-06-15 00:28 | CT ---
INDICATION: Diarrhea and abdominal pain TECHNIQUE: CT abdomen and pelvis acquired with 100 cc Isovue 370 IV contrast. COMPARISON: None FINDINGS: Lower chest: Unremarkable. Liver: Unremarkable. Spleen: Unremarkable. Pancreas: Unremarkable. Gallbladder and bile ducts: Unremarkable. Adrenal glands: Unremarkable. Kidneys: Simple cyst on the right kidney. GI tract: Mild, diffuse colonic wall thickening. No obstruction or extraluminal air. Appendix is normal. Vascular structures: Unremarkable. Lymph nodes: Unremarkable. Pelvic Organs: Unremarkable. Bones: Unremarkable for age. IMPRESSION: Mild, diffuse colonic wall thickening may be due to infectious colitis or inflammatory bowel disease. Please note that all CT scans at this facility use dose modulation, iterative reconstruction, and/or weight-based dosing when appropriate to reduce radiation dose to as low as reasonably achievable. Dictated by Rachel Corrales MD @ Jun 15 2020 12:26AM Signed by Dr. Rachel Corrales @ Jun 15 2020 12:26AM
--- NOTE | 2020-06-15 00:37 | EDM.PDOC ---
ED HPI GENERAL MEDICAL PROBLEM - General Chief Complaint: Gastrointestinal Problem Stated Complaint: POSSIBLE C DIFF, ABDOMINAL PAIN Time Seen by Provider: 06/14/20 22:41 - History of Present Illness INITIAL COMMENTS - FREE TEXT/NARRATIVE: HISTORY AND PHYSICAL: History of present illness: This is a 24-year-old female who comes into the ER today secondary to multiple loose watery bowel movements over the last several days. Patient reports that approximately 2 weeks ago she presented to the ER today and was diagnosed with a urinary tract infection and was started on antibiotics. Patient reports that she finished full course of antibiotics however now she is developed copious amounts of diarrhea. Patient reports that she went to see her primary care doctor today secondary to abdominal cramping and diarrhea and her doctor was concerned about the possibility of C. difficile given her recent antibiotic use. Patient was given a cup for stool sample and was discharged home with bacterial cultures take. Patient went home and throughout the course of the evening she started experiencing a significant amount of abdominal cramping and continued to have diarrhea so she came to the ED for further evaluation. Patient reports no recent fevers, shakes, chills. Patient reports she been nauseous but no vomiting or diarrhea. Patient denies any chest pain or shortness of breath. Patient denies any dysuria, frequency, urgency. Patient has a blood in her stool but reports it extremely mucousy with occasional streaks of blood. Review of systems: As per history of present illness and below otherwise all systems reviewed and negative. Past medical history: As per history of present illness and as reviewed below otherwise noncontributory. Surgical history: As per history of present illness and as reviewed below otherwise noncontributory. Social history: No reported history of drug or alcohol abuse. Family history: As per history of present illness and as reviewed below otherwise noncontributory. Physical exam: Constitutional: Patient is oriented to person, place, and time. Appears well- developed and well-nourished. No distress. HEENT: Moist mucous membranes Head: Normocephalic and atraumatic Eyes: Right eye exhibits no discharge. Left eye exhibits no discharge. No scleral icterus Neck: Normal range of motion. No tracheal deviation present. Cardiovascular: Normal rate and regular rhythm. Pulmonary: Effort normal, no respiratory distress. Abd: Soft, nondistended, no rebound/guarding, no psoas or obturator signs, no tenderness at Mcberney's point, no Apple's sign. Pt does not present with an exam that would be consistent with an acute surgical abdomen at this time, mild tenderness palpation left lower quadrant and midepigastric region. Musculoskeletal: Normal range of motion Neurologic: Alert and oriented to person, place and time. Skin: [place], warm and dry. Psychiatric: Normal mood and affect. Behavior is normal. Judgment and thought content normal. Nursing note and vital signs have been reviewed This patient was seen and evaluated during the 2019 SARS-CoV-2 novel coronavirus pandemic period. Community viral transmission is ongoing at time of this encoun ter and the emergency department is operating under pandemic response procedures. Diagnostics: CT the abdomen pelvis: CT abdomen pelvis with IV contrast revealed mild diffuse colonic wall thickening which may be due to infectious colitis or inflammatory bowel disease. No other acute pathology was identified. CBC, CMP within normal limits without evidence of acidosis, contraction alkalosis, renal failure, electrolyte imbalances, leukocytosis. Stool cultures, C. difficile have been sent but are still pending at the time of disposition. Therapeutics: NSS x1 L, Zofran, Toradol, Assessment and plan: This is a 24-year-old female who presents ER today secondary to diarrhea and concerns for C. difficile given abdominal cramping and the amount of diarrhea she has been having. Patient had a CT scan which reveals diffuse colonic wall thickening which may be due to infectious colitis versus inflammatory bowel disease. Given the patient's clinical scenario this appears to be more consistent with an infectious colitis. High in the list would be possibility of C. difficile given her recent antibiotic use however other infectious possibilities also exist. Patient will be empirically started on Flagyl 500 mg 3 times daily for 7 days until confirmatory results of her stool have resulted. Patient does have an appointment to follow-up with her physician in the next couple days. I discussed results with the patient. Patient reports that she feels much better after the fluids Zofran and Toradol and feels very comfortable the plan to be discharged home. I will discharge patient home with a prescription for Bentyl as well as Flagyl. Reassessment at the time of disposition demonstrates that the patient is in no acute distress. The patient has remained stable throughout the entire ED visit and is without objective evidence for acute process requiring urgent intervention or hospitalization. The patient is stable for discharge, counseling is provided as documented above, discussed symptomatic treatment and specific conditions for return. I have spoken with the patient/caregiver and discussed todays findings, in addition to providing specific details for the plan of care. Questions are answered and there is agreement with the plan. Definitive disposition and diagnosis as appropriate pending reevaluation and review of above. Lower Abdomen Pain Score (Numeric/FACES): 7 - Related Data Allergies Allergy/AdvReac Type Severity Reaction Status Date / Time codeine Allergy Anaphylactic Verified 06/14/20 22:58 Shock epinephrine Allergy Other Verified 06/14/20 22:58 Home Meds: Home Meds Gabapentin [Neurontin] 600 mg PO QID 05/31/20 [History] Pumpkin Seed Extract/Soy Germ [Azo Bladder Control Capsule] 1 tab PO DAILY 05/31/20 [History] Venlafaxine HCl [Venlafaxine ER] 1 tab PO DAILY 05/31/20 [History] Zolpidem [Ambien] 5 mg PO BEDTIME PRN 05/31/20 [History] norethindrone-e.estradioL-iron [Lo Loestrin Fe 1-10] 1 tab PO DAILY 05/31/20 [History] traMADol HCl [Tramadol HCl] 100 mg PO TID PRN 05/31/20 [History] Dicyclomine [Bentyl] 20 mg PO TID PRN #20 tab 06/15/20 [Rx] metroNIDAZOLE [Flagyl] 500 mg PO Q8H #21 tab 06/15/20 [Rx] Past Medical History - Past Health History Medical/Surgical History: Denies Medical/Surgical History Genitourinary History: Reports: Renal Calculus, UTI, Recurrent Psychiatric History: Reports: Anxiety, Depression Dermatologic History: Reports: Urticaria - Infectious Disease History Infectious Disease History: Reports: Chicken Pox - Past Surgical History HEENT Surgical History: Reports: Adenoidectomy, Tonsillectomy Other Musculoskeletal Surgeries/Procedures:: 6 leg surgery and 2 elbow Social & Family History - Family History Family Medical History: No Pertinent Family History - Tobacco Use Tobacco Use Status *Q: Never Tobacco User - Caffeine Use Caffeine Use: Reports: None - Recreational Drug Use Recreational Drug Use: No ED ROS GENERAL - Review of Systems Review Of Systems: See Below ED EXAM, GENERAL - Physical Exam Exam: See Below Course - Vital Signs Last Recorded V/S: Last Vital Signs Temp 97.4 F 06/14/20 22:53 Pulse 97 06/14/20 22:53 Resp 18 06/14/20 22:53 BP 120/62 06/14/20 22:53 Pulse Ox 96 06/14/20 22:53 - Orders/Labs/Meds Orders: Active Orders 24 hr Category Date Time Status STOOL CULTURE/SHIGA TOXIN [MREF] Stat Lab 06/14/20 23:16 Received Sodium Chloride 0.9% [Saline Flush] Med 06/14/20 22:57 Active 10 ml FLUSH ASDIRECTED PRN Sodium Chloride 0.9% [Saline Flush] Med 06/14/20 22:57 Active 2.5 ml FLUSH ASDIRECTED PRN Saline Lock Insert [OM.PC] Stat Oth 06/14/20 22:57 Ordered Medication Orders Sodium Chloride (Saline Flush) 10 ml FLUSH ASDIRECTED PRN PRN Reason: Keep Vein Open Last Admin: 06/14/20 23:22 Dose: 10 ml Documented by: GRAZYNA Sodium Chloride (Saline Flush) 2.5 ml FLUSH ASDIRECTED PRN PRN Reason: Keep Vein Open Last Admin: 06/14/20 23:22 Dose: 2.5 ml Documented by: [email or web address] Labs: Laboratory Tests 06/14/20 06/14/20 06/14/20 Range/Units 23:16 23:16 23:16 WBC 8.02 (4.0-11.0) K/uL RBC 4.36 (4.30-5.90) M/uL Hgb 13.2 (12.0-16.0) g/dL Hct 39.4 (36.0-46.0) % MCV 90.4 (80.0-98.0) fL MCH 30.3 (27.0-32.0) pg MCHC 33.5 (31.0-37.0) g/dL RDW Std Deviation 39.7 (28.0-62.0) fl RDW Coeff of Mabel 12 (11.0-15.0) % Plt Count 284 (150-400) K/uL MPV 10.00 (7.40-12.00) fL Neut % (Auto) 65.8 (48.0-80.0) % Lymph % (Auto) 16.8 (16.0-40.0) % [place] % (Auto) 16.3 H (0.0-15.0) % Eos % (Auto) 0.9 (0.0-7.0) % Baso % (Auto) 0.2 (0.0-1.5) % Neut # (Auto) 5.3 (1.4-5.7) K/uL Lymph # (Auto) 1.4 (0.6-2.4) K/uL [place] # (Auto) 1.3 H (0.0-0.8) K/uL Eos # (Auto) 0.1 (0.0-0.7) K/uL Baso # (Auto) 0.0 (0.0-0.1) K/uL Sodium 143 (136-145) mmol/L Potassium 3.7 (3.5-5.1) mmol/L Chloride 103 (98-107) mmol/L Carbon Dioxide 26.4 (21.0-32.0) mmol/L BUN 17 (7.0-18.0) mg/dL Creatinine 0.9 (0.6-1.0) mg/dL Est Cr Clr Drug Dosing 78.36 mL/min Estimated GFR (MDRD) > 60.0 ml/min Glucose 100 (74-106) mg/dL Calcium 9.7 (8.5-10.1) mg/dL Total Bilirubin 0.3 (0.2-1.0) mg/dL AST 12 L (15-37) IU/L ALT 18 (14-63) IU/L Alkaline Phosphatase 54 (46-116) U/L Total Protein 7.9 (6.4-8.2) g/dL Albumin 4.3 (3.4-5.0) g/dL Globulin 3.6 (2.6-4.0) g/dL Albumin/Globulin Ratio 1.2 (0.9-1.6) Lipase 90 (73-393) U/L Urine HCG, Qual NEGATIVE (NEGATIVE) Meds: Medications Generic Name Dose Route Start Last Admin Trade Name Freq PRN Reason Stop Dose Admin Sodium Chloride 10 ml 06/14/20 22:57 06/14/20 23:22 Saline Flush FLUSH 10 ml ASDIRECTED PRN Administration Keep Vein Open Sodium Chloride 2.5 ml 06/14/20 22:57 06/14/20 23:22 Saline Flush FLUSH 2.5 ml ASDIRECTED PRN Administration Keep Vein Open Discontinued Medications Generic Name Dose Route Start Last Admin Trade Name Kalani PRN Reason Stop Dose Admin Sodium Chloride 1,000 mls @ 999 mls/hr 06/14/20 22:57 06/14/20 23:21 Normal Saline IV 06/14/20 23:57 999 mls/hr .Bolus ONE Administration Iopamidol 100 ml 06/15/20 00:08 06/15/20 00:09 Isovue Multipack-370 (76%) IVPUSH 06/15/20 00:09 100 ml ONETIME STA Administration Ketorolac Tromethamine 15 mg 06/14/20 22:57 06/14/20 23:21 Toradol IVPUSH 06/14/20 22:58 15 mg ONETIME ONE Administration Ondansetron HCl 4 mg 06/14/20 22:57 06/14/20 23:21 Zofran IVPUSH 06/14/20 22:58 4 mg ONETIME ONE Administration Departure - Departure Time of Disposition: 00:37 Disposition: Home, Self-Care 01 Condition: Good Clinical Impression: Diarrhea, Abdominal pain, Colitis - Discharge Information Instructions: Dehydration, Adult, [id number], Diarrhea, Adult, Colitis Referrals: Carlos Cooney MD [Primary Care Provider] - Additional Instructions: You have been seen and evaluated in the ER today secondary to bouts of diarrhea, abdominal pain. We have sent your stool cultures to the lab however they will take 1 to 2 days to result. We will start empirically on Flagyl 500 mg 3 times a day to treat you for the possibility of C. difficile until results are back. Please make an appointment to see your doctor so they can review the test results with you. In the meantime, drink plenty of fluids, Gatorade, bland diet. You will also be given a prescription for Bentyl which is an antispasmodic that can also help your stomach cramps. The following information is given to patients seen in the emergency department who are being discharged to home. This information is to outline your options for follow-up care. We provide all patients seen in our emergency department with a follow-up referral. The need for follow-up, as well as the timing and circumstances, are variable depending upon the specifics of your emergency department visit. If you don't have a primary care physician on staff, we will provide you with a referral. We always advise you to contact your personal physician following an emergency department visit to inform them of the circumstance of the visit and for follow-up with them and/or the need for any referrals to a consulting specialist. The emergency department will also refer you to a specialist when appropriate. This referral assures that you have the opportunity for follow-up care with a specialist. All of these measure are taken in an effort to provide you with optimal care, which includes your follow-up. Under all circumstances we always encourage you to contact your private physician who remains a resource for coordinating your care. When calling for follow-up care, please make the office aware that this follow-up is from your re cent emergency room visit. If for any reason you are refused follow-up, please contact the [facility] Emergency Department at and asked to speak to the emergency department charge nurse. [facility] - [facility] [address] [place] [id number] [facility] [address] [place] [id number] Sepsis Event Note (ED) - Evaluation Sepsis Screening Result: No Definite Risk - Focused Exam Vital Signs: Vital Signs Temp Pulse Resp BP Pulse Ox 06/14/20 22:53 97.4 F 97 18 120/62 96 - My Orders Last 24 Hours: My Active Orders 06/14/20 22:57 Sodium Chloride 0.9% [Saline Flush] 10 ml FLUSH ASDIRECTED PRN Sodium Chloride 0.9% [Saline Flush] 2.5 ml FLUSH ASDIRECTED PRN Saline Lock Insert [OM.PC] Stat 06/14/20 23:16 STOOL CULTURE/SHIGA TOXIN [MREF] Stat - Assessment/Plan Last 24 Hours: My Active Orders 06/14/20 22:57 Sodium Chloride 0.9% [Saline Flush] 10 ml FLUSH ASDIRECTED PRN Sodium Chloride 0.9% [Saline Flush] 2.5 ml FLUSH ASDIRECTED PRN Saline Lock Insert [OM.PC] Stat 06/14/20 23:16 STOOL CULTURE/SHIGA TOXIN [MREF] Stat
== END 2020-06-15 00:52 | disposition home or self-care (01) ==
LOC: MW.ED 22:40
DX: K52.9 Noninfective gastroenteritis and colitis, unspecified (principal); Z88.5 Allergy status to narcotic agent; Z88.8 Allergy status to other drugs, medicaments and biological substances; Z79.899 Other long term (current) drug therapy
CPT/HCPCS: 36415; 74177; 80053; 81025; 83690; 85025; 87045; 87046; 87324; 87449; 87899; 96374; 96375; 99284; J1885; J2405; J7030; Q9967; 99283

== ENCOUNTER 2020-08-04 16:04 | Observation (INO) | payer OTHER ==
[2020-08-04] MEDS ORDERED: Sodium Chloride 0.9% 10 ML Syringe FLUSH PRN (16:53)
[2020-08-04] MEDS ORDERED: Ondansetron 4 MG/2 ML SDV IVPUSH ONE (16:53)
[2020-08-04] MEDS ORDERED: Lactated Ringers 1,000 ML IV ONE (16:53)
[2020-08-04] MEDS ORDERED: fentaNYL 50 MCG/ML SDV IVPUSH ONE (16:53)
[2020-08-04] MEDS ORDERED: Sodium Chloride 0.9% 2.5 ML Syringe FLUSH PRN (16:53)
--- NOTE | 2020-08-04 17:06 | EDM.PDOC ---
ED HPI GENERAL MEDICAL PROBLEM - General Chief Complaint: Flank Pain Stated Complaint: ABDOMINAL AND LT SIDE PAIN Time Seen by Provider: 08/04/20 16:11 Source of Information: Reports: Patient History Limitations: Reports: No Limitations - History of Present Illness INITIAL COMMENTS - FREE TEXT/NARRATIVE: 24-year-old female with history of kidney stones, pyelonephritis, C. difficile colitis, fibromyalgia presents with abdominal pain since Sunday. Pain is diffuse, described as cramping, constant, rated 6/10, associated with fevers and chills and sweats, urinary urgency, nausea, diarrhea with mucus and trace blood, urinary frequency. She denies vomiting or dysuria. She has undergone treatment for C. difficile, she initially went on 10-day course of Flagyl, symptoms im proved but C. difficile returned and was placed on vancomycin 125 mg 4 times daily for 10 days, she then was tested positive again last . She is currently on gabapentin and tramadol for her fibromyalgia. ROS: A 10-point review of systems, other than pertinent positives and negatives as stated per HPI, is otherwise negative Past medical history: No additional pertinent history Past Surgical history: No additional pertinent history Social history: No additional pertinent history Family history: No additional pertinent history PHYSICAL EXAM General: AOx4, GCS = 15, moderate distress HEENT: dry mucous membrane Neck: supple, no meningismus, no Kernig or Brudzinski Cardiac: S1S2 RRR Respiratory: CTAB, no crackles or rales, no wheezing Abdomen: Soft, diffuse abdominal tenderness, no rebound or guarding, nondistended, no pulsatile mass. Back: No CVAT Musculoskeletal: NVI distally, no deformity Neuro: No focal deficits, CN 2 - 12 WNL. Abdominal Pain Score (Numeric/FACES): 5 - Related Data Allergies Allergy/AdvReac Type Severity Reaction Status Date / Time codeine Allergy Anaphylactic Verified 08/04/20 17:01 Shock epinephrine Allergy Other Verified 08/04/20 17:01 Home Meds: Home Meds Gabapentin [Neurontin] 600 mg PO ASDIRECTED 05/31/20 [History] Zolpidem [Ambien] 2.5 mg PO BEDTIME PRN 05/31/20 [History] norethindrone-e.estradioL-iron [Lo Loestrin Fe 1-10] 1 tab PO DAILY 05/31/20 [History] traMADol HCl [Tramadol HCl] 100 mg PO ASDIRECTED PRN 05/31/20 [History] Past Medical History - Past Health History Medical/Surgical History: Denies Medical/Surgical History Genitourinary History: Reports: Renal Calculus, UTI, Recurrent Psychiatric History: Reports: Anxiety, Depression Dermatologic History: Reports: Urticaria - Infectious Disease History Infectious Disease History: Reports: Chicken Pox - Past Surgical History HEENT Surgical History: Reports: Adenoidectomy, Tonsillectomy Other Musculoskeletal Surgeries/Procedures:: 6 leg surgery and 2 elbow Social & Family History - Family History Family Medical History: No Pertinent Family History - Caffeine Use Caffeine Use: Reports: None ED ROS GENERAL - Review of Systems Review Of Systems: See Below (see dictation) ED EXAM, GENERAL - Physical Exam Exam: See Below (see dictation) Course - Vital Signs Last Recorded V/S: Last Vital Signs Temp 98.1 F 08/04/20 17:03 Pulse 97 08/04/20 17:03 Resp 18 08/04/20 17:03 BP 119/75 08/04/20 17:03 Pulse Ox 98 08/04/20 17:03 - Orders/Labs/Meds Orders: Active Orders 24 hr Category Date Time Status Patient Status [ADT] Routine ADT 08/04/20 18:56 Ordered Cardiac Monitoring [RC] . DIRECTED Care 08/04/20 16:53 Active CORONAVIRUS COVID-19 YAMIL [MOLEC] Stat Lab 08/04/20 18:56 Ordered Sodium Chloride 0.9% [Saline Flush] Med 08/04/20 16:53 Active 10 ml FLUSH ASDIRECTED PRN Sodium Chloride 0.9% [Saline Flush] Med 08/04/20 16:53 Active 2.5 ml FLUSH ASDIRECTED PRN Isolation [COMM] Stat Oth 08/04/20 17:13 Active Saline Lock Insert [OM.PC] Stat Oth 08/04/20 16:53 Ordered Medication Orders Sodium Chloride (Saline Flush) 10 ml FLUSH ASDIRECTED PRN PRN Reason: Keep Vein Open Last Admin: 08/04/20 17:52 Dose: 10 ml Documented by: NAHOMI Sodium Chloride (Saline Flush) 2.5 ml FLUSH ASDIRECTED PRN PRN Reason: Keep Vein Open Last Admin: 08/04/20 17:52 Dose: 2.5 ml Documented by: NAHOMI Labs: Laboratory Tests 08/04/20 08/04/20 08/04/20 Range/Units 16:55 16:55 16:55 WBC (4.0-11.0) K/uL RBC (4.30-5.90) M/uL Hgb (12.0-16.0) g/dL Hct (36.0-46.0) % MCV (80.0-98.0) fL MCH (27.0-32.0) pg MCHC (31.0-37.0) g/dL RDW Std Deviation (28.0-62.0) fl RDW Coeff of Mabel (11.0-15.0) % Plt Count (150-400) K/uL MPV (7.40-12.00) fL Neut % (Auto) (48.0-80.0) % Lymph % (Auto) (16.0-40.0) % Darke % (Auto) (0.0-15.0) % Eos % (Auto) (0.0-7.0) % Baso % (Auto) (0.0-1.5) % Neut # (Auto) (1.4-5.7) K/uL Lymph # (Auto) (0.6-2.4) K/uL Darke # (Auto) (0.0-0.8) K/uL Eos # (Auto) (0.0-0.7) K/uL Baso # (Auto) (0.0-0.1) K/uL Nucleated RBC % /100WBC Nucleated RBCs # K/uL Lactate (0.20-2.00) mmol/L Sodium (136-145) mmol/L Potassium (3.5-5.1) mmol/L Chloride (98-107) mmol/L Carbon Dioxide (21.0-32.0) mmol/L BUN (7.0-18.0) mg/dL Creatinine (0.6-1.0) mg/dL Est Cr Clr Drug Dosing mL/min Estimated GFR (MDRD) ml/min Glucose (74-106) mg/dL Calcium (8.5-10.1) mg/dL Phosphorus (2.6-4.7) mg/dL Magnesium (1.8-2.4) mg/dL Total Bilirubin (0.2-1.0) mg/dL AST (15-37) IU/L ALT (14-63) IU/L Alkaline Phosphatase (46-116) U/L Total Protein (6.4-8.2) g/dL Albumin (3.4-5.0) g/dL Globulin (2.6-4.0) g/dL Albumin/Globulin Ratio (0.9-1.6) Lipase (73-393) U/L Urine Color YELLOW Urine Appearance CLEAR Urine pH 7.0 (5.0-8.0) Ur Specific [place] 1.025 (1.001-1.035) Urine Protein NEGATIVE (NEGATIVE) mg/dL Urine Glucose (UA) NEGATIVE (NEGATIVE) mg/dL Urine Ketones TRACE H (NEGATIVE) mg/dL Urine Occult Blood NEGATIVE (NEGATIVE) Urine Nitrite NEGATIVE (NEGATIVE) Urine Bilirubin NEGATIVE (NEGATIVE) Urine Urobilinogen 1.0 (<2.0) EU/dL Ur Leukocyte Esterase NEGATIVE (NEGATIVE) Urine HCG, Qual NEGATIVE (NEGATIVE) Urine Opiates Screen NEGATIVE (NEGATIVE) Ur Oxycodone Screen NEGATIVE (NEGATIVE) Urine Methadone Screen NEGATIVE (NEGATIVE) Ur Barbiturates Screen NEGATIVE (NEGATIVE) Ur Phencyclidine Scrn NEGATIVE (NEGATIVE) Ur Amphetamine Screen NEGATIVE (NEGATIVE) U Methamphetamines Scrn NEGATIVE (NEGATIVE) U Benzodiazepines Scrn NEGATIVE (NEGATIVE) U Cocaine Metab Screen NEGATIVE (NEGATIVE) U Marijuana (THC) Screen NEGATIVE (NEGATIVE) 08/04/20 08/04/20 08/04/20 Range/Units 17:00 17:00 17:00 WBC 6.17 (4.0-11.0) K/uL RBC 4.29 L (4.30-5.90) M/uL Hgb 12.9 (12.0-16.0) g/dL Hct 40.2 (36.0-46.0) % MCV 93.7 (80.0-98.0) fL MCH 30.1 (27.0-32.0) pg MCHC 32.1 (31.0-37.0) g/dL RDW Std Deviation 47.3 (28.0-62.0) fl RDW Coeff of Mabel 14 (11.0-15.0) % Plt Count 311 (150-400) K/uL MPV 9.70 (7.40-12.00) fL Neut % (Auto) 62.1 (48.0-80.0) % Lymph % (Auto) 26.1 (16.0-40.0) % Darke % (Auto) 9.1 (0.0-15.0) % Eos % (Auto) 2.4 (0.0-7.0) % Baso % (Auto) 0.3 (0.0-1.5) % Neut # (Auto) 3.8 (1.4-5.7) K/uL Lymph # (Auto) 1.6 (0.6-2.4) K/uL Darke # (Auto) 0.6 (0.0-0.8) K/uL Eos # (Auto) 0.2 (0.0-0.7) K/uL Baso # (Auto) 0.0 (0.0-0.1) K/uL Nucleated RBC % 0.0 /100WBC Nucleated RBCs # 0 K/uL Lactate 1.2 (0.20-2.00) mmol/L Sodium 143 (136-145) mmol/L Potassium 4.6 (3.5-5.1) mmol/L Chloride 106 (98-107) mmol/L Carbon Dioxide 25.6 (21.0-32.0) mmol/L BUN 11 (7.0-18.0) mg/dL Creatinine 0.8 (0.6-1.0) mg/dL Est Cr Clr Drug Dosing 88.15 mL/min Estimated GFR (MDRD) > 60.0 ml/min Glucose 106 (74-106) mg/dL Calcium 9.4 (8.5-10.1) mg/dL Phosphorus 3.3 (2.6-4.7) mg/dL Magnesium 2.4 (1.8-2.4) mg/dL Total Bilirubin 0.2 (0.2-1.0) mg/dL AST 10 L (15-37) IU/L ALT 20 (14-63) IU/L Alkaline Phosphatase 49 (46-116) U/L Total Protein 7.3 (6.4-8.2) g/dL Albumin 3.9 (3.4-5.0) g/dL Globulin 3.4 (2.6-4.0) g/dL Albumin/Globulin Ratio 1.1 (0.9-1.6) Lipase 137 (73-393) U/L Urine Color Urine Appearance Urine pH (5.0-8.0) Ur Specific [place] (1.001-1.035) Urine Protein (NEGATIVE) mg/dL Urine Glucose (UA) (NEGATIVE) mg/dL Urine Ketones (NEGATIVE) mg/dL Urine Occult Blood (NEGATIVE) Urine Nitrite (NEGATIVE) Urine Bilirubin (NEGATIVE) Urine Urobilinogen (<2.0) EU/dL Ur Leukocyte Esterase (NEGATIVE) Urine HCG, Qual (NEGATIVE) Urine Opiates Screen (NEGATIVE) Ur Oxycodone Screen (NEGATIVE) Urine Methadone Screen (NEGATIVE) Ur Barbiturates Screen (NEGATIVE) Ur Phencyclidine Scrn (NEGATIVE) Ur Amphetamine Screen (NEGATIVE) U Methamphetamines Scrn (NEGATIVE) U Benzodiazepines Scrn (NEGATIVE) U Cocaine Metab Screen (NEGATIVE) U Marijuana (THC) Screen (NEGATIVE) Meds: Medications Generic Name Dose Route Start Last Admin Trade Name Freq PRN Reason Stop Dose Admin Sodium Chloride 10 ml 08/04/20 16:53 08/04/20 17:52 Saline Flush FLUSH 10 ml ASDIRECTED PRN Administration Keep Vein Open Sodium Chloride 2.5 ml 08/04/20 16:53 08/04/20 17:52 Saline Flush FLUSH 2.5 ml ASDIRECTED PRN Administration Keep Vein Open Discontinued Medications Generic Name Dose Route Start Last Admin Trade Name Freq PRN Reason Stop Dose Admin Fentanyl 50 mcg 08/04/20 16:53 08/04/20 17:52 Fentanyl IVPUSH 08/04/20 16:54 50 mcg ONETIME ONE Administration Lactated Ringer's 1,000 mls @ 999 mls/hr 08/04/20 16:53 08/04/20 17:52 Ringers, Lactated IV 08/04/20 17:53 999 mls/hr .BOLUS ONE Administration Ondansetron HCl 4 mg 08/04/20 16:53 08/04/20 17:52 Zofran IVPUSH 08/04/20 16:54 4 mg ONETIME ONE Administration - Re-Assessments/Exams Free Text/Narrative Re-Assessment/Exam: 08/04/20 18:57 Her abdominal pain is unchanged, will admit for intractable abdominal pain and further work-up for C. difficile colitis. Case discussed with Dr. Alonzo iGll, who agrees to admit patient. The hospitalist's documentation supersedes all other documentation on this patient with regard to any conflicts or discrepancies from this point forward. Any emergency conditions have been treated to the ability of the ED prior to admission. Departure - Departure Time of Disposition: 18:57 Disposition: Admitted As Inpatient 64 Condition: Good Clinical Impression: Abdominal pain - Discharge Information *PRESCRIPTION DRUG MONITORING PROGRAM REVIEWED*: Not Applicable *COPY OF PRESCRIPTION DRUG MONITORING REPORT IN PATIENT JERED: Not Applicable Referrals: Carlos Cooney MD [Primary Care Provider] - Forms: ED Department Discharge Sepsis Event Note (ED) - Focused Exam Vital Signs: Vital Signs Temp Pulse Resp BP Pulse Ox 08/04/20 17:03 98.1 F 97 18 119/75 98 - My Orders Last 24 Hours: My Active Orders 08/04/20 16:53 Cardiac Monitoring [RC] . DIRECTED Sodium Chloride 0.9% [Saline Flush] 10 ml FLUSH ASDIRECTED PRN Sodium Chloride 0.9% [Saline Flush] 2.5 ml FLUSH ASDIRECTED PRN Saline Lock Insert [OM.PC] Stat 08/04/20 17:13 Isolation [COMM] Stat 08/04/20 18:56 Patient Status [ADT] Routine CORONAVIRUS COVID-19 YAMIL [MOLEC] Stat - Assessment/Plan Last 24 Hours: My Active Orders 08/04/20 16:53 Cardiac Monitoring [RC] . DIRECTED Sodium Chloride 0.9% [Saline Flush] 10 ml FLUSH ASDIRECTED PRN Sodium Chloride 0.9% [Saline Flush] 2.5 ml FLUSH ASDIRECTED PRN Saline Lock Insert [OM.PC] Stat 08/04/20 17:13 Isolation [COMM] Stat 08/04/20 18:56 Patient Status [ADT] Routine CORONAVIRUS COVID-19 YAMIL [MOLEC] Stat
[2020-08-04 17:52] LABS: BLOOD UREA NITROGEN,BUN 11 mg/dL (7.0-18.0); CHLORIDE,CL 106 mmol/L (98-107); GLUCOSE RANDOM 106 mg/dL (74-106); LIPASE 137 U/L (73-393); POTASSIUM,K 4.6 mmol/L (3.5-5.1); SODIUM,NA 143 mmol/L (136-145)
[2020-08-04 17:55] LABS: CARBON DIOXIDE,CO2 25.6 mmol/L (21.0-32.0)
--- NOTE | 2020-08-04 18:24 | CT ---
INDICATION: Left-sided abdominal pain and C difficile infection. TECHNIQUE: Axial images were obtained from the diaphragm to the pubic symphysis. Reformats were obtained in the coronal and sagittal plane. IV Contrast: 100 cc Isovue 370 Oral Contrast: None COMPARISON: Abdomen and pelvis CT 06/15/2020 FINDINGS: Lower chest: Unremarkable. Liver: Normal in contour with focal fat adjacent to the falciform ligament. Gallbladder and bile ducts: Unremarkable. No stones or inflammation. No biliary dilatation. Spleen: Unremarkable. Normal in size without mass. Pancreas: Unremarkable. No mass or inflammation. Adrenal glands: Unremarkable. No nodules. Kidneys: Symmetric enhancement with a right renal cyst measuring 9 millimeters. Vasculature: Unremarkable. GI tract: The stomach is unremarkable. No dilated loops of large or small intestine. Appendix is seen and is unremarkable. Pelvis: Uterus is anteverted. Left ovarian cyst measuring 3.0 centimeters. Bones: Unremarkable for age. IMPRESSION: 1. No dilated bowel or localizing inflammation. 2. Simple appearing left ovarian cyst measuring 3.0 centimeters. Please note that all CT scans at this facility use dose modulation, iterative reconstruction, and/or weight-based dosing when appropriate to reduce radiation dose to as low as reasonably achievable. Dictated by Trey Osorio MD @ Aug 04 2020 6:23PM Signed by Dr. Trey Osorio @ Aug 04 2020 6:23PM
[2020-08-04] MEDS ORDERED: Iopamidol 755 Mg/ML 100 ML Bottle IVPUSH ONE (19:13)
[2020-08-04] MEDS ORDERED: Morphine 10 MG/ML Syringe IVPUSH PRN (20:13)
[2020-08-04] MEDS ORDERED: Ondansetron 4 MG/2 ML SDV IVPUSH PRN (20:13)
--- NOTE | 2020-08-04 20:14 | PCM.HP.2 ---
H&P History of Present Illness - General Date of Service: 08/04/20 Admit Problem/Dx: Admission Diagnosis/Problem Admission Diagnosis/Problem Abdominal pain Source of Information: Patient History Limitations: Reports: No Limitations - History of Present Illness Initial Comments - Free Text/Narative: 24-year-old female presents today complaining of abdominal pain and cramping for the past 4 days. She has a PMH of kidney stones, fibromyalgia and recurrent C. diff. Patient reports that she was initially diagnosed with c. diff in mid June and completed a course of flagyl. She felt better for about 2-3 days then had recurrence of abdominal pain, diarrhea and was then treated for a first recurrence of c. diff with vancomycin for 10 days. She felt better for approximately 3 weeks but then started having diarrhea and abdominal pain once again approximately 1 week ago. Patient was seen by her PCP and submitted a stool sample on 07/29/20 which returned positive for c. diff toxin on 08/02/20. Her PCP recommended starting another longer course of vancomycin but patient was hesitant to start vancomycin again. Patient then notes that her diarrhea improved and has now not had a bowel movement in more than 24 hours. She decided to come to the ER today because of cramping abdominal pain that is diffuse but more so on the LUQ and LLQ. She has been able to tolerate fluids but has felt nauseous. She also reports having chills, sweats and urinary frequency. Denies having any fevers, sore throat, cough, SOB, chest pain, vomiting, blood in urine, numbness or tingling in extremities. In the ER, CBC and CMP unremarkable, lactate normal, UA unremarkable, UDS unremarkable. CT abd/pelvis showed left ovarian cyst (3cm). Patient was given IV 1 L LR bolus, fentanyl and zofran. She was admitted for further evaluation and treatment. Abdominal Pain Score (Numeric/FACES): 5 - Related Data Allergies/Adverse Reactions: Allergies Allergy/AdvReac Type Severity Reaction Status Date / Time codeine Allergy Anaphylactic Verified 08/04/20 17:01 Shock epinephrine Allergy Other Verified 08/04/20 17:01 Home Medications: Home Meds Gabapentin [Neurontin] 600 mg PO ASDIRECTED 05/31/20 [History] Zolpidem [Ambien] 2.5 mg PO BEDTIME PRN 05/31/20 [History] norethindrone-e.estradioL-iron [Lo Loestrin Fe 1-10] 1 tab PO DAILY 05/31/20 [History] traMADol HCl [Tramadol HCl] 100 mg PO ASDIRECTED PRN 05/31/20 [History] Past Medical History - Past Health History Medical/Surgical History: Denies Medical/Surgical History Genitourinary History: Reports: Renal Calculus, UTI, Recurrent Psychiatric History: Reports: Anxiety, Depression Dermatologic History: Reports: Urticaria - Infectious Disease History Infectious Disease History: Reports: Chicken Pox - Past Surgical History HEENT Surgical History: Reports: Adenoidectomy, Tonsillectomy Other Musculoskeletal Surgeries/Procedures:: 6 leg surgery and 2 elbow Social & Family History - Family History Family Medical History: No Pertinent Family History - Tobacco Use Tobacco Use Status *Q: Never Tobacco User Second Hand Smoke Exposure: No - Caffeine Use Caffeine Use: Reports: None - Recreational Drug Use Recreational Drug Use: No H&P Review of Systems - Review of Systems: Review Of Systems: Comprehensive ROS is negative, except as noted in HPI. Exam - Exam Exam: See Below - Vital Signs Vital Signs: Last Vital Signs Temp 36.7 C 08/04/20 17:03 Pulse 80 08/04/20 19:17 Resp 16 08/04/20 19:17 BP 103/61 08/04/20 19:17 Pulse Ox 96 08/04/20 19:17 Weight: 60.781 kg - Exam General: Alert, Oriented, Cooperative, Other (NAD) HEENT: Conjunctiva Clear, EOMI, Hearing Intact, Mucosa Moist & [place], Pupils Equal, Pupils Reactive Neck: Supple, Trachea Midline Lungs: Clear to Auscultation, Normal Respiratory Effort Cardiovascular: Regular Rate, Regular Rhythm GI/Abdominal Exam: Normal Bowel Sounds, Soft, No Distention, Other (Generalized ttp, no guarding, no rebound tenderness) Extremities: Normal Inspection, No Pedal Edema Peripheral Pulses: 2+: Radial (L), Radial (R) Skin: Warm, Dry, Intact Neuro Extensive - Mental Status: Alert, Oriented x3, Normal Mood/Affect Psychiatric: Alert, Normal Affect, Normal Mood - Patient Data Lab Results Last 24 hrs: Laboratory Results - last 24 hr 08/04/20 08/04/20 08/04/20 Range/Units 16:55 16:55 16:55 WBC (4.0-11.0) K/uL RBC (4.30-5.90) M/uL Hgb (12.0-16.0) g/dL Hct (36.0-46.0) % MCV (80.0-98.0) fL MCH (27.0-32.0) pg MCHC (31.0-37.0) g/dL RDW Std Deviation (28.0-62.0) fl RDW Coeff of Mabel (11.0-15.0) % Plt Count (150-400) K/uL MPV (7.40-12.00) fL Neut % (Auto) (48.0-80.0) % Lymph % (Auto) (16.0-40.0) % [place] % (Auto) (0.0-15.0) % Eos % (Auto) (0.0-7.0) % Baso % (Auto) (0.0-1.5) % Neut # (Auto) (1.4-5.7) K/uL Lymph # (Auto) (0.6-2.4) K/uL [place] # (Auto) (0.0-0.8) K/uL Eos # (Auto) (0.0-0.7) K/uL Baso # (Auto) (0.0-0.1) K/uL Nucleated RBC % /100WBC Nucleated RBCs # K/uL Lactate (0.20-2.00) mmol/L Sodium (136-145) mmol/L Potassium (3.5-5.1) mmol/L Chloride (98-107) mmol/L Carbon Dioxide (21.0-32.0) mmol/L BUN (7.0-18.0) mg/dL Creatinine (0.6-1.0) mg/dL Est Cr Clr Drug Dosing mL/min Estimated GFR (MDRD) ml/min Glucose (74-106) mg/dL Calcium (8.5-10.1) mg/dL Phosphorus (2.6-4.7) mg/dL Magnesium (1.8-2.4) mg/dL Total Bilirubin (0.2-1.0) mg/dL AST (15-37) IU/L ALT (14-63) IU/L Alkaline Phosphatase (46-116) U/L Total Protein (6.4-8.2) g/dL Albumin (3.4-5.0) g/dL Globulin (2.6-4.0) g/dL Albumin/Globulin Ratio (0.9-1.6) Lipase (73-393) U/L Urine Color YELLOW Urine Appearance CLEAR Urine pH 7.0 (5.0-8.0) Ur Specific [place] 1.025 (1.001-1.035) Urine Protein NEGATIVE (NEGATIVE) mg/dL Urine Glucose (UA) NEGATIVE (NEGATIVE) mg/dL Urine Ketones TRACE H (NEGATIVE) mg/dL Urine Occult Blood NEGATIVE (NEGATIVE) Urine Nitrite NEGATIVE (NEGATIVE) Urine Bilirubin NEGATIVE (NEGATIVE) Urine Urobilinogen 1.0 (<2.0) EU/dL Ur Leukocyte Esterase NEGATIVE (NEGATIVE) Urine HCG, Qual NEGATIVE (NEGATIVE) Urine Opiates Screen NEGATIVE (NEGATIVE) Ur Oxycodone Screen NEGATIVE (NEGATIVE) Urine Methadone Screen NEGATIVE (NEGATIVE) Ur Barbiturates Screen NEGATIVE (NEGATIVE) Ur Phencyclidine Scrn NEGATIVE (NEGATIVE) Ur Amphetamine Screen NEGATIVE (NEGATIVE) U Methamphetamines Scrn NEGATIVE (NEGATIVE) U Benzodiazepines Scrn NEGATIVE (NEGATIVE) U Cocaine Metab Screen NEGATIVE (NEGATIVE) U Marijuana (THC) Screen NEGATIVE (NEGATIVE) SARS-CoV-2 RNA (YAMIL) (NEGATIVE) 08/04/20 08/04/20 08/04/20 Range/Units 17:00 17:00 17:00 WBC 6.17 (4.0-11.0) K/uL RBC 4.29 L (4.30-5.90) M/uL Hgb 12.9 (12.0-16.0) g/dL Hct 40.2 (36.0-46.0) % MCV 93.7 (80.0-98.0) fL MCH 30.1 (27.0-32.0) pg MCHC 32.1 (31.0-37.0) g/dL RDW Std Deviation 47.3 (28.0-62.0) fl RDW Coeff of Mabel 14 (11.0-15.0) % Plt Count 311 (150-400) K/uL MPV 9.70 (7.40-12.00) fL Neut % (Auto) 62.1 (48.0-80.0) % Lymph % (Auto) 26.1 (16.0-40.0) % [place] % (Auto) 9.1 (0.0-15.0) % Eos % (Auto) 2.4 (0.0-7.0) % Baso % (Auto) 0.3 (0.0-1.5) % Neut # (Auto) 3.8 (1.4-5.7) K/uL Lymph # (Auto) 1.6 (0.6-2.4) K/uL [place] # (Auto) 0.6 (0.0-0.8) K/uL Eos # (Auto) 0.2 (0.0-0.7) K/uL Baso # (Auto) 0.0 (0.0-0.1) K/uL Nucleated RBC % 0.0 /100WBC Nucleated RBCs # 0 K/uL Lactate 1.2 (0.20-2.00) mmol/L Sodium 143 (136-145) mmol/L Potassium 4.6 (3.5-5.1) mmol/L Chloride 106 (98-107) mmol/L Carbon Dioxide 25.6 (21.0-32.0) mmol/L BUN 11 (7.0-18.0) mg/dL Creatinine 0.8 (0.6-1.0) mg/dL Est Cr Clr Drug Dosing 88.15 mL/min Estimated GFR (MDRD) > 60.0 ml/min Glucose 106 (74-106) mg/dL Calcium 9.4 (8.5-10.1) mg/dL Phosphorus 3.3 (2.6-4.7) mg/dL Magnesium 2.4 (1.8-2.4) mg/dL Total Bilirubin 0.2 (0.2-1.0) mg/dL AST 10 L (15-37) IU/L ALT 20 (14-63) IU/L Alkaline Phosphatase 49 (46-116) U/L Total Protein 7.3 (6.4-8.2) g/dL Albumin 3.9 (3.4-5.0) g/dL Globulin 3.4 (2.6-4.0) g/dL Albumin/Globulin Ratio 1.1 (0.9-1.6) Lipase 137 (73-393) U/L Urine Color Urine Appearance Urine pH (5.0-8.0) Ur Specific [place] (1.001-1.035) Urine Protein (NEGATIVE) mg/dL Urine Glucose (UA) (NEGATIVE) mg/dL Urine Ketones (NEGATIVE) mg/dL Urine Occult Blood (NEGATIVE) Urine Nitrite (NEGATIVE) Urine Bilirubin (NEGATIVE) Urine Urobilinogen (<2.0) EU/dL Ur Leukocyte Esterase (NEGATIVE) Urine HCG, Qual (NEGATIVE) Urine Opiates Screen (NEGATIVE) Ur Oxycodone Screen (NEGATIVE) Urine Methadone Screen (NEGATIVE) Ur Barbiturates Screen (NEGATIVE) Ur Phencyclidine Scrn (NEGATIVE) Ur Amphetamine Screen (NEGATIVE) U Methamphetamines Scrn (NEGATIVE) U Benzodiazepines Scrn (NEGATIVE) U Cocaine Metab Screen (NEGATIVE) U Marijuana (THC) Screen (NEGATIVE) SARS-CoV-2 RNA (YAMIL) (NEGATIVE) 08/04/20 Range/Units 19:00 WBC (4.0-11.0) K/uL RBC (4.30-5.90) M/uL Hgb (12.0-16.0) g/dL Hct (36.0-46.0) % MCV (80.0-98.0) fL MCH (27.0-32.0) pg MCHC (31.0-37.0) g/dL RDW Std Deviation (28.0-62.0) fl RDW Coeff of Mabel (11.0-15.0) % Plt Count (150-400) K/uL MPV (7.40-12.00) fL Neut % (Auto) (48.0-80.0) % Lymph % (Auto) (16.0-40.0) % [place] % (Auto) (0.0-15.0) % Eos % (Auto) (0.0-7.0) % Baso % (Auto) (0.0-1.5) % Neut # (Auto) (1.4-5.7) K/uL Lymph # (Auto) (0.6-2.4) K/uL [place] # (Auto) (0.0-0.8) K/uL Eos # (Auto) (0.0-0.7) K/uL Baso # (Auto) (0.0-0.1) K/uL Nucleated RBC % /100WBC Nucleated RBCs # K/uL Lactate (0.20-2.00) mmol/L Sodium (136-145) mmol/L Potassium (3.5-5.1) mmol/L Chloride (98-107) mmol/L Carbon Dioxide (21.0-32.0) mmol/L BUN (7.0-18.0) mg/dL Creatinine (0.6-1.0) mg/dL Est Cr Clr Drug Dosing mL/min Estimated GFR (MDRD) ml/min Glucose (74-106) mg/dL Calcium (8.5-10.1) mg/dL Phosphorus (2.6-4.7) mg/dL Magnesium (1.8-2.4) mg/dL Total Bilirubin (0.2-1.0) mg/dL AST (15-37) IU/L ALT (14-63) IU/L Alkaline Phosphatase (46-116) U/L Total Protein (6.4-8.2) g/dL Albumin (3.4-5.0) g/dL Globulin (2.6-4.0) g/dL Albumin/Globulin Ratio (0.9-1.6) Lipase (73-393) U/L Urine Color Urine Appearance Urine pH (5.0-8.0) Ur Specific [place] (1.001-1.035) Urine Protein (NEGATIVE) mg/dL Urine Glucose (UA) (NEGATIVE) mg/dL Urine Ketones (NEGATIVE) mg/dL Urine Occult Blood (NEGATIVE) Urine Nitrite (NEGATIVE) Urine Bilirubin (NEGATIVE) Urine Urobilinogen (<2.0) EU/dL Ur Leukocyte Esterase (NEGATIVE) Urine HCG, Qual (NEGATIVE) Urine Opiates Screen (NEGATIVE) Ur Oxycodone Screen (NEGATIVE) Urine Methadone Screen (NEGATIVE) Ur Barbiturates Screen (NEGATIVE) Ur Phencyclidine Scrn (NEGATIVE) Ur Amphetamine Screen (NEGATIVE) U Methamphetamines Scrn (NEGATIVE) U Benzodiazepines Scrn (NEGATIVE) U Cocaine Metab Screen (NEGATIVE) U Marijuana (THC) Screen (NEGATIVE) SARS-CoV-2 RNA (YAMIL) NEGATIVE (NEGATIVE) Result Diagrams: 08/04/20 17:00 08/04/20 17:00 Sepsis Event Note - Evaluation Sepsis Screening Result: No Definite Risk - Focused Exam Vital Signs: Vital Signs Temp Pulse Resp BP Pulse Ox 08/04/20 19:17 80 16 103/61 96 03/03/21 17:03 36.7 C 97 18 119/75 98 - Problem List (1) C. difficile colitis SNOMED Code(s): 827217215 ICD Code: A04.72 - ENTEROCOLITIS D/T CLOSTRIDIUM DIFFICILE, NOT SPCF RECUR Status: Acute Current Visit: Yes (2) Abdominal pain SNOMED Code(s): 03162986 ICD Code: R10.9 - UNSPECIFIED ABDOMINAL PAIN Status: Acute Current Visit: Yes Problem List Initiated/Reviewed/Updated: Yes Orders Last 24hrs: Active Orders 24 hr Category Date Time Status Admission Status [Patient Status] [ADT] Stat ADT 08/04/20 20:10 Active Antiembolic Devices [RC] PER UNIT ROUTINE Care 08/04/20 20:13 Ordered Cardiac Monitoring [RC] . DIRECTED Care 08/04/20 16:53 Active Oxygen Therapy [RC] PRN Care 08/04/20 20:13 Ordered Up ad [place] [RC] ASDIRECTED Care 08/04/20 20:13 Ordered VTE/DVT Education [RC] PER UNIT ROUTINE Care 08/04/20 20:13 Ordered Vital Signs [RC] Q4H Care 08/04/20 20:13 Ordered Clear Liquid Diet [DIET] Diet 08/04/20 Dinner Ordered CBC WITH AUTO DIFF [HEME] AM Lab 08/05/20 05:11 Ordered COMPREHENSIVE METABOLIC PN,CMP [CHEM] AM Lab 08/05/20 05:11 Ordered Acetaminophen [TylenoL] Med 08/04/20 20:13 Ordered 650 mg PO Q4H PRN Morphine Med 08/04/20 20:13 Ordered 2 mg IVPUSH Q4H PRN Ondansetron [Zofran] Med 08/04/20 20:13 Ordered 4 mg IVPUSH Q4H PRN Sodium Chloride 0.9% [Saline Flush] Med 08/04/20 16:53 Active 10 ml FLUSH ASDIRECTED PRN Sodium Chloride 0.9% [Saline Flush] Med 08/04/20 16:53 Active 2.5 ml FLUSH ASDIRECTED PRN Isolation [COMM] Stat Oth 08/04/20 17:13 Active Saline Lock Insert [OM.PC] Stat Oth 08/04/20 16:53 Ordered Sequential Compression Device [OM.PC] Per Unit Routine Oth 08/04/20 20:13 Ordered Resuscitation Status Routine Resus Stat 08/04/20 20:13 Ordered Medication Orders Sodium Chloride (Saline Flush) 10 ml FLUSH ASDIRECTED PRN PRN Reason: Keep Vein Open Last Admin: 08/04/20 17:52 Dose: 10 ml Documented by: NAHOMI Sodium Chloride (Saline Flush) 2.5 ml FLUSH ASDIRECTED PRN PRN Reason: Keep Vein Open Last Admin: 08/04/20 17:52 Dose: 2.5 ml Documented by: NAHOMI Assessment/Plan Comment:: Assessment and Plan: 1. C. diff colitis, 2nd recurrence: - Admit to med/surg. Will start IV LR's @ 100 cc/hr. CLD diet for now and m orphine prn pain. Will start PO vancomycin pulse-tapered regimen. - Patient presented lab result from [facility] showing C. diff toxin positive on 07/29/20. - CT abd/pelvis w/ contrast showed simple appearing left ovarian cyst (3.0 cm). 2. DVT prophylaxis: - SCD's for now.
[2020-08-04] MEDS ORDERED: Morphine 2 MG/ML SYRINGE IVPUSH PRN (21:02)
[2020-08-04] MEDS ORDERED: NORETHINDRONE E ESTRADIOL IRON PO SCH (23:45)
[2020-08-05] MEDS: Lactated Ringers 1,000 ML IV SCH ×3 (01:00→21:48)
[2020-08-05] MEDS: Venlafaxine 75 MG Cap.ER PO SCH ×2 (01:07→11:16)
[2020-08-05] MEDS: Vancomycin 125 MG Cap PO SCH ×4 (01:07→17:31)
[2020-08-05] MEDS: Acetaminophen 325 MG Tab PO PRN ×3 (01:13→19:39)
[2020-08-05 06:00] LABS: BLOOD UREA NITROGEN,BUN 9 mg/dL (7.0-18.0); CARBON DIOXIDE,CO2 25.2 mmol/L (21.0-32.0); CHLORIDE,CL 107 mmol/L (98-107); GLUCOSE RANDOM 73 mg/dL (74-106); POTASSIUM,K 4.7 mmol/L (3.5-5.1); SODIUM,NA 142 mmol/L (136-145)
[2020-08-05] MEDS ORDERED: NORETHINDRONE E ESTRADIOL IRON PO SCH ×3 (09:00→21:00)
[2020-08-05] MEDS ORDERED: traMADol 50 MG Tab PO PRN (09:30)
[2020-08-05] MEDS ORDERED: Alum Hydrox/Mag Hydrox/Simeth 15 ML, Lidocaine 2% 5 ML PO ONE ×2 (11:45)
[2020-08-05] MEDS: Gabapentin 300 MG Cap PO SCH ×3 (12:04→17:31)
[2020-08-05] MEDS: Pantoprazole 40 MG in Sodium Chloride 0.9% 10 ML IV SCH (12:04)
[2020-08-05] MEDS ORDERED: Sodium Chloride 0.9% 2.5 ML Syringe FLUSH PRN (14:16)
--- NOTE | 2020-08-05 14:17 | PCM.PN ---
- General Info Date of Service: 08/05/20 Admission Dx/Problem (Free Text): Admission Diagnosis/Problem Admission Diagnosis/Problem Abdominal pain Subjective Update: Feeling nauseated along with abdominal pain this morning. Has not had a bowel movement in the last 24 hours. Not tolerating diet well. Denies any chest pain or shortness of breath. Functional Status: Reports: Ambulating, Urinating. Denies: Pain Controlled, Tolerating Diet - Review of Systems General: Reports: Malaise HEENT: Reports: No Symptoms. Denies: Sore Throat Pulmonary: Reports: No Symptoms. Denies: Shortness of Breath Cardiovascular: Reports: No Symptoms. Denies: Chest Pain Gastrointestinal: Reports: Abdominal Pain, Decreased Appetite, Nausea. Denies: Diarrhea Genitourinary: Reports: No Symptoms. Denies: Dysuria, Frequency Musculoskeletal: Reports: No Symptoms Skin: Reports: No Symptoms Neurological: Reports: No Symptoms Psychiatric: Reports: No Symptoms - Patient Data Vitals - Most Recent: Last Vital Signs Temp 97.8 F 08/05/20 11:00 Pulse 71 08/05/20 11:00 Resp 16 08/05/20 11:00 BP 117/65 08/05/20 11:00 Pulse Ox 98 08/05/20 11:00 Weight - Most Recent: 60.781 kg I&O - Last 24 Hours: Intake & Output 08/04/20 08/05/20 08/05/20 22:59 06:59 14:59 Intake Total 328 Balance 328 Lab Results Last 24 Hours: Laboratory Results - last 24 hr 08/04/20 08/04/20 08/04/20 Range/Units 16:55 16:55 16:55 WBC (4.0-11.0) K/uL RBC (4.30-5.90) M/uL Hgb (12.0-16.0) g/dL Hct (36.0-46.0) % MCV (80.0-98.0) fL MCH (27.0-32.0) pg MCHC (31.0-37.0) g/dL RDW Std Deviation (28.0-62.0) fl RDW Coeff of Mabel (11.0-15.0) % Plt Count (150-400) K/uL MPV (7.40-12.00) fL Neut % (Auto) (48.0-80.0) % Lymph % (Auto) (16.0-40.0) % Baldwin % (Auto) (0.0-15.0) % Eos % (Auto) (0.0-7.0) % Baso % (Auto) (0.0-1.5) % Neut # (Auto) (1.4-5.7) K/uL Lymph # (Auto) (0.6-2.4) K/uL Baldwin # (Auto) (0.0-0.8) K/uL Eos # (Auto) (0.0-0.7) K/uL Baso # (Auto) (0.0-0.1) K/uL Nucleated RBC % /100WBC Nucleated RBCs # K/uL Lactate (0.20-2.00) mmol/L Sodium (136-145) mmol/L Potassium (3.5-5.1) mmol/L Chloride (98-107) mmol/L Carbon Dioxide (21.0-32.0) mmol/L BUN (7.0-18.0) mg/dL Creatinine (0.6-1.0) mg/dL Est Cr Clr Drug Dosing mL/min Estimated GFR (MDRD) ml/min Glucose (74-106) mg/dL Calcium (8.5-10.1) mg/dL Phosphorus (2.6-4.7) mg/dL Magnesium (1.8-2.4) mg/dL Total Bilirubin (0.2-1.0) mg/dL AST (15-37) IU/L ALT (14-63) IU/L Alkaline Phosphatase (46-116) U/L Total Protein (6.4-8.2) g/dL Albumin (3.4-5.0) g/dL Globulin (2.6-4.0) g/dL Albumin/Globulin Ratio (0.9-1.6) Lipase (73-393) U/L Urine Color YELLOW Urine Appearance CLEAR Urine pH 7.0 (5.0-8.0) Ur Specific [place] 1.025 (1.001-1.035) Urine Protein NEGATIVE (NEGATIVE) mg/dL Urine Glucose (UA) NEGATIVE (NEGATIVE) mg/dL Urine Ketones TRACE H (NEGATIVE) mg/dL Urine Occult Blood NEGATIVE (NEGATIVE) Urine Nitrite NEGATIVE (NEGATIVE) Urine Bilirubin NEGATIVE (NEGATIVE) Urine Urobilinogen 1.0 (<2.0) EU/dL Ur Leukocyte Esterase NEGATIVE (NEGATIVE) Urine HCG, Qual NEGATIVE (NEGATIVE) Urine Opiates Screen NEGATIVE (NEGATIVE) Ur Oxycodone Screen NEGATIVE (NEGATIVE) Urine Methadone Screen NEGATIVE (NEGATIVE) Ur Barbiturates Screen NEGATIVE (NEGATIVE) Ur Phencyclidine Scrn NEGATIVE (NEGATIVE) Ur Amphetamine Screen NEGATIVE (NEGATIVE) U Methamphetamines Scrn NEGATIVE (NEGATIVE) U Benzodiazepines Scrn NEGATIVE (NEGATIVE) U Cocaine Metab Screen NEGATIVE (NEGATIVE) U Marijuana (THC) Screen NEGATIVE (NEGATIVE) SARS-CoV-2 RNA (YAMIL) (NEGATIVE) 08/04/20 08/04/20 08/04/20 Range/Units 17:00 17:00 17:00 WBC 6.17 (4.0-11.0) K/uL RBC 4.29 L (4.30-5.90) M/uL Hgb 12.9 (12.0-16.0) g/dL Hct 40.2 (36.0-46.0) % MCV 93.7 (80.0-98.0) fL MCH 30.1 (27.0-32.0) pg MCHC 32.1 (31.0-37.0) g/dL RDW Std Deviation 47.3 (28.0-62.0) fl RDW Coeff of Mabel 14 (11.0-15.0) % Plt Count 311 (150-400) K/uL MPV 9.70 (7.40-12.00) fL Neut % (Auto) 62.1 (48.0-80.0) % Lymph % (Auto) 26.1 (16.0-40.0) % Baldwin % (Auto) 9.1 (0.0-15.0) % Eos % (Auto) 2.4 (0.0-7.0) % Baso % (Auto) 0.3 (0.0-1.5) % Neut # (Auto) 3.8 (1.4-5.7) K/uL Lymph # (Auto) 1.6 (0.6-2.4) K/uL Baldwin # (Auto) 0.6 (0.0-0.8) K/uL Eos # (Auto) 0.2 (0.0-0.7) K/uL Baso # (Auto) 0.0 (0.0-0.1) K/uL Nucleated RBC % 0.0 /100WBC Nucleated RBCs # 0 K/uL Lactate 1.2 (0.20-2.00) mmol/L Sodium 143 (136-145) mmol/L Potassium 4.6 (3.5-5.1) mmol/L Chloride 106 (98-107) mmol/L Carbon Dioxide 25.6 (21.0-32.0) mmol/L BUN 11 (7.0-18.0) mg/dL Creatinine 0.8 (0.6-1.0) mg/dL Est Cr Clr Drug Dosing 88.15 mL/min Estimated GFR (MDRD) > 60.0 ml/min Glucose 106 (74-106) mg/dL Calcium 9.4 (8.5-10.1) mg/dL Phosphorus 3.3 (2.6-4.7) mg/dL Magnesium 2.4 (1.8-2.4) mg/dL Total Bilirubin 0.2 (0.2-1.0) mg/dL AST 10 L (15-37) IU/L ALT 20 (14-63) IU/L Alkaline Phosphatase 49 (46-116) U/L Total Protein 7.3 (6.4-8.2) g/dL Albumin 3.9 (3.4-5.0) g/dL Globulin 3.4 (2.6-4.0) g/dL Albumin/Globulin Ratio 1.1 (0.9-1.6) Lipase 137 (73-393) U/L Urine Color Urine Appearance Urine pH (5.0-8.0) Ur Specific [place] (1.001-1.035) Urine Protein (NEGATIVE) mg/dL Urine Glucose (UA) (NEGATIVE) mg/dL Urine Ketones (NEGATIVE) mg/dL Urine Occult Blood (NEGATIVE) Urine Nitrite (NEGATIVE) Urine Bilirubin (NEGATIVE) Urine Urobilinogen (<2.0) EU/dL Ur Leukocyte Esterase (NEGATIVE) Urine HCG, Qual (NEGATIVE) Urine Opiates Screen (NEGATIVE) Ur Oxycodone Screen (NEGATIVE) Urine Methadone Screen (NEGATIVE) Ur Barbiturates Screen (NEGATIVE) Ur Phencyclidine Scrn (NEGATIVE) Ur Amphetamine Screen (NEGATIVE) U Methamphetamines Scrn (NEGATIVE) U Benzodiazepines Scrn (NEGATIVE) U Cocaine Metab Screen (NEGATIVE) U Marijuana (THC) Screen (NEGATIVE) SARS-CoV-2 RNA (YAMIL) (NEGATIVE) 08/04/20 08/05/20 08/05/20 Range/Units 19:00 05:25 05:25 WBC 6.37 (4.0-11.0) K/uL RBC 3.90 L (4.30-5.90) M/uL Hgb 11.7 L (12.0-16.0) g/dL Hct 36.5 (36.0-46.0) % MCV 93.6 (80.0-98.0) fL MCH 30.0 (27.0-32.0) pg MCHC 32.1 (31.0-37.0) g/dL RDW Std Deviation 47.1 (28.0-62.0) fl RDW Coeff of Mabel 14 (11.0-15.0) % Plt Count 280 (150-400) K/uL MPV 9.90 (7.40-12.00) fL Neut % (Auto) 49.3 (48.0-80.0) % Lymph % (Auto) 35.8 (16.0-40.0) % Baldwin % (Auto) 11.9 (0.0-15.0) % Eos % (Auto) 2.7 (0.0-7.0) % Baso % (Auto) 0.3 (0.0-1.5) % Neut # (Auto) 3.1 (1.4-5.7) K/uL Lymph # (Auto) 2.3 (0.6-2.4) K/uL Baldwin # (Auto) 0.8 (0.0-0.8) K/uL Eos # (Auto) 0.2 (0.0-0.7) K/uL Baso # (Auto) 0.0 (0.0-0.1) K/uL Nucleated RBC % 0.0 /100WBC Nucleated RBCs # 0 K/uL Lactate (0.20-2.00) mmol/L Sodium 142 (136-145) mmol/L Potassium 4.7 (3.5-5.1) mmol/L Chloride 107 (98-107) mmol/L Carbon Dioxide 25.2 (21.0-32.0) mmol/L BUN 9 (7.0-18.0) mg/dL Creatinine 0.8 (0.6-1.0) mg/dL Est Cr Clr Drug Dosing 88.15 mL/min Estimated GFR (MDRD) > 60.0 ml/min Glucose 73 L (74-106) mg/dL Calcium 8.6 (8.5-10.1) mg/dL Phosphorus (2.6-4.7) mg/dL Magnesium (1.8-2.4) mg/dL Total Bilirubin 0.2 (0.2-1.0) mg/dL AST 7 L (15-37) IU/L ALT 16 (14-63) IU/L Alkaline Phosphatase 38 L (46-116) U/L Total Protein 6.2 L (6.4-8.2) g/dL Albumin 3.3 L (3.4-5.0) g/dL Globulin 2.9 (2.6-4.0) g/dL Albumin/Globulin Ratio 1.1 (0.9-1.6) Lipase (73-393) U/L Urine Color Urine Appearance Urine pH (5.0-8.0) Ur Specific [place] (1.001-1.035) Urine Protein (NEGATIVE) mg/dL Urine Glucose (UA) (NEGATIVE) mg/dL Urine Ketones (NEGATIVE) mg/dL Urine Occult Blood (NEGATIVE) Urine Nitrite (NEGATIVE) Urine Bilirubin (NEGATIVE) Urine Urobilinogen (<2.0) EU/dL Ur Leukocyte Esterase (NEGATIVE) Urine HCG, Qual (NEGATIVE) Urine Opiates Screen (NEGATIVE) Ur Oxycodone Screen (NEGATIVE) Urine Methadone Screen (NEGATIVE) Ur Barbiturates Screen (NEGATIVE) Ur Phencyclidine Scrn (NEGATIVE) Ur Amphetamine Screen (NEGATIVE) U Methamphetamines Scrn (NEGATIVE) U Benzodiazepines Scrn (NEGATIVE) U Cocaine Metab Screen (NEGATIVE) U Marijuana (THC) Screen (NEGATIVE) SARS-CoV-2 RNA (YAMIL) NEGATIVE (NEGATIVE) Med Orders - Current: Current Medications Acetaminophen (Tylenol) 650 mg PO Q4H PRN PRN Reason: Pain (Mild 1-3)/fever Last Admin: 08/05/20 11:22 Dose: 650 mg Documented by: Gabapentin (Neurontin) 600 mg PO QID [facility] Last Admin: 08/05/20 13:06 Dose: Not Given Documented by: Lactated Ringer's (Ringers, Lactated) 1,000 mls @ 100 mls/hr IV ASDIRECTED [facility] Last Admin: 08/05/20 11:19 Dose: 100 mls/hr Documented by: Pantoprazole Sodium 40 mg/ (Sodium Chloride) 10 mls @ 300 mls/hr IV Q24H [facility] Last Admin: 08/05/20 12:04 Dose: 300 mls/hr Documented by: Morphine Sulfate (Morphine) 2 mg IVPUSH Q4H PRN PRN Reason: Pain (severe 7-10) Stop: 08/05/20 20:13 Last Admin: 08/04/20 21:27 Dose: 2 mg Documented by: Ondansetron HCl (Zofran) 4 mg IVPUSH Q4H PRN PRN Reason: Nausea Last Admin: 08/05/20 11:20 Dose: 4 mg Documented by: Norethindrone-E. Estradiol-Iron [Lo Loestrin Fe 1-10] 1 each PO BEDTIME [facility] Sodium Chloride (Saline Flush) 10 ml FLUSH ASDIRECTED PRN PRN Reason: Keep Vein Open Last Admin: 08/04/20 17:52 Dose: 10 ml Documented by: Sodium Chloride (Saline Flush) 2.5 ml FLUSH ASDIRECTED PRN PRN Reason: Keep Vein Open Last Admin: 08/04/20 17:52 Dose: 2.5 ml Documented by: Tramadol HCl (Ultram) 100 mg PO TID PRN PRN Reason: Pain Vancomycin HCl (Vancocin 125 Mg Capsule) 125 mg PO QID [facility] Last Admin: 08/05/20 12:03 Dose: 125 mg Documented by: Venlafaxine HCl (Effexor Xr) 75 mg PO BEDTIME [facility] Zaleplon (Sonata) 10 mg PO BEDTIME PRN PRN Reason: Insomnia Last Admin: 08/05/20 01:06 Dose: 10 mg Documented by: Discontinued Medications Al Hydroxide/Mg Hydroxide 15 (ml/ Lidocaine HCl 5 ml) 0 ml PO ONETIME ONE Stop: 08/05/20 11:46 Last Admin: 08/05/20 12:05 Dose: 1 each Documented by: Fentanyl (Fentanyl) 50 mcg IVPUSH ONETIME ONE Stop: 08/04/20 16:54 Last Admin: 08/04/20 17:52 Dose: 50 mcg Documented by: Lactated Ringer's (Ringers, Lactated) 1,000 mls @ 999 mls/hr IV .BOLUS ONE Stop: 08/04/20 17:53 Last Admin: 08/04/20 17:52 Dose: 999 mls/hr Documented by: Iopamidol (Isovue-370 (76%)) 100 ml IVPUSH ONETIME ONE Stop: 08/04/20 19:14 Last Admin: 08/04/20 19:14 Dose: 100 ml Documented by: Morphine Sulfate (Morphine) 2 mg IVPUSH Q4H PRN PRN Reason: Pain (severe 7-10) Stop: 08/05/20 20:13 Non-Formulary Medication (Norethindrone-E.Estradiol-Iron [Lo Loestrin Fe 1-10]) 1 tab PO DAILY [facility] Last Admin: 08/05/20 07:58 Dose: Not Given Documented by: Non-Formulary Medication (Norethindrone-E.Estradiol-Iron [Lo Loestrin Fe 1-10]) 1 tab PO DAILY [facility] Last Admin: 08/05/20 01:07 Dose: 1 tab Documented by: Ondansetron HCl (Zofran) 4 mg IVPUSH ONETIME ONE Stop: 08/04/20 16:54 Last Admin: 08/04/20 17:52 Dose: 4 mg Documented by: Norethindrone-E. Estradiol-Iron [Lo Loestrin Fe 1-10] 1 each PO DAILY [facility] Last Admin: 08/05/20 11:16 Dose: Not Given Documented by: Vancomycin HCl (Vancocin 125 Mg Capsule) 125 mg PO QID [facility] Venlafaxine HCl (Effexor Xr) 75 mg PO DAILY [facility] Last Admin: 08/05/20 11:16 Dose: Not Given Documented by: - Exam General: Alert, Oriented Lungs: Clear to Auscultation, Normal Respiratory Effort Cardiovascular: Regular Rate, Regular Rhythm GI/Abdominal Exam: Normal Bowel Sounds, Soft, Tender (Diffuse) Extremities: Normal Inspection, Normal Range of Motion, Non-Tender, No Pedal Edema Neurological: No New Focal Deficit Psy/Mental Status: Alert, Normal Affect, Normal Mood - Patient Data Lab Results Last 24 hrs: Laboratory Results - last 24 hr 08/04/20 08/04/20 08/04/20 Range/Units 16:55 16:55 16:55 WBC (4.0-11.0) K/uL RBC (4.30-5.90) M/uL Hgb (12.0-16.0) g/dL Hct (36.0-46.0) % MCV (80.0-98.0) fL MCH (27.0-32.0) pg MCHC (31.0-37.0) g/dL RDW Std Deviation (28.0-62.0) fl RDW Coeff of Mabel (11.0-15.0) % Plt Count (150-400) K/uL MPV (7.40-12.00) fL Neut % (Auto) (48.0-80.0) % Lymph % (Auto) (16.0-40.0) % Baldwin % (Auto) (0.0-15.0) % Eos % (Auto) (0.0-7.0) % Baso % (Auto) (0.0-1.5) % Neut # (Auto) (1.4-5.7) K/uL Lymph # (Auto) (0.6-2.4) K/uL Baldwin # (Auto) (0.0-0.8) K/uL Eos # (Auto) (0.0-0.7) K/uL Baso # (Auto) (0.0-0.1) K/uL Nucleated RBC % /100WBC Nucleated RBCs # K/uL Lactate (0.20-2.00) mmol/L Sodium (136-145) mmol/L Potassium (3.5-5.1) mmol/L Chloride (98-107) mmol/L Carbon Dioxide (21.0-32.0) mmol/L BUN (7.0-18.0) mg/dL Creatinine (0.6-1.0) mg/dL Est Cr Clr Drug Dosing mL/min Estimated GFR (MDRD) ml/min Glucose (74-106) mg/dL Calcium (8.5-10.1) mg/dL Phosphorus (2.6-4.7) mg/dL Magnesium (1.8-2.4) mg/dL Total Bilirubin (0.2-1.0) mg/dL AST (15-37) IU/L ALT (14-63) IU/L Alkaline Phosphatase (46-116) U/L Total Protein (6.4-8.2) g/dL Albumin (3.4-5.0) g/dL Globulin (2.6-4.0) g/dL Albumin/Globulin Ratio (0.9-1.6) Lipase (73-393) U/L Urine Color YELLOW Urine Appearance CLEAR Urine pH 7.0 (5.0-8.0) Ur Specific [place] 1.025 (1.001-1.035) Urine Protein NEGATIVE (NEGATIVE) mg/dL Urine Glucose (UA) NEGATIVE (NEGATIVE) mg/dL Urine Ketones TRACE H (NEGATIVE) mg/dL Urine Occult Blood NEGATIVE (NEGATIVE) Urine Nitrite NEGATIVE (NEGATIVE) Urine Bilirubin NEGATIVE (NEGATIVE) Urine Urobilinogen 1.0 (<2.0) EU/dL Ur Leukocyte Esterase NEGATIVE (NEGATIVE) Urine HCG, Qual NEGATIVE (NEGATIVE) Urine Opiates Screen NEGATIVE (NEGATIVE) Ur Oxycodone Screen NEGATIVE (NEGATIVE) Urine Methadone Screen NEGATIVE (NEGATIVE) Ur Barbiturates Screen NEGATIVE (NEGATIVE) Ur Phencyclidine Scrn NEGATIVE (NEGATIVE) Ur Amphetamine Screen NEGATIVE (NEGATIVE) U Methamphetamines Scrn NEGATIVE (NEGATIVE) U Benzodiazepines Scrn NEGATIVE (NEGATIVE) U Cocaine Metab Screen NEGATIVE (NEGATIVE) U Marijuana (THC) Screen NEGATIVE (NEGATIVE) SARS-CoV-2 RNA (YAMIL) (NEGATIVE) 08/04/20 08/04/20 08/04/20 Range/Units 17:00 17:00 17:00 WBC 6.17 (4.0-11.0) K/uL RBC 4.29 L (4.30-5.90) M/uL Hgb 12.9 (12.0-16.0) g/dL Hct 40.2 (36.0-46.0) % MCV 93.7 (80.0-98.0) fL MCH 30.1 (27.0-32.0) pg MCHC 32.1 (31.0-37.0) g/dL RDW Std Deviation 47.3 (28.0-62.0) fl RDW Coeff of Mabel 14 (11.0-15.0) % Plt Count 311 (150-400) K/uL MPV 9.70 (7.40-12.00) fL Neut % (Auto) 62.1 (48.0-80.0) % Lymph % (Auto) 26.1 (16.0-40.0) % Baldwin % (Auto) 9.1 (0.0-15.0) % Eos % (Auto) 2.4 (0.0-7.0) % Baso % (Auto) 0.3 (0.0-1.5) % Neut # (Auto) 3.8 (1.4-5.7) K/uL Lymph # (Auto) 1.6 (0.6-2.4) K/uL Baldwin # (Auto) 0.6 (0.0-0.8) K/uL Eos # (Auto) 0.2 (0.0-0.7) K/uL Baso # (Auto) 0.0 (0.0-0.1) K/uL Nucleated RBC % 0.0 /100WBC Nucleated RBCs # 0 K/uL Lactate 1.2 (0.20-2.00) mmol/L Sodium 143 (136-145) mmol/L Potassium 4.6 (3.5-5.1) mmol/L Chloride 106 (98-107) mmol/L Carbon Dioxide 25.6 (21.0-32.0) mmol/L BUN 11 (7.0-18.0) mg/dL Creatinine 0.8 (0.6-1.0) mg/dL Est Cr Clr Drug Dosing 88.15 mL/min Estimated GFR (MDRD) > 60.0 ml/min Glucose 106 (74-106) mg/dL Calcium 9.4 (8.5-10.1) mg/dL Phosphorus 3.3 (2.6-4.7) mg/dL Magnesium 2.4 (1.8-2.4) mg/dL Total Bilirubin 0.2 (0.2-1.0) mg/dL AST 10 L (15-37) IU/L ALT 20 (14-63) IU/L Alkaline Phosphatase 49 (46-116) U/L Total Protein 7.3 (6.4-8.2) g/dL Albumin 3.9 (3.4-5.0) g/dL Globulin 3.4 (2.6-4.0) g/dL Albumin/Globulin Ratio 1.1 (0.9-1.6) Lipase 137 (73-393) U/L Urine Color Urine Appearance Urine pH (5.0-8.0) Ur Specific [place] (1.001-1.035) Urine Protein (NEGATIVE) mg/dL Urine Glucose (UA) (NEGATIVE) mg/dL Urine Ketones (NEGATIVE) mg/dL Urine Occult Blood (NEGATIVE) Urine Nitrite (NEGATIVE) Urine Bilirubin (NEGATIVE) Urine Urobilinogen (<2.0) EU/dL Ur Leukocyte Esterase (NEGATIVE) Urine HCG, Qual (NEGATIVE) Urine Opiates Screen (NEGATIVE) Ur Oxycodone Screen (NEGATIVE) Urine Methadone Screen (NEGATIVE) Ur Barbiturates Screen (NEGATIVE) Ur Phencyclidine Scrn (NEGATIVE) Ur Amphetamine Screen (NEGATIVE) U Methamphetamines Scrn (NEGATIVE) U Benzodiazepines Scrn (NEGATIVE) U Cocaine Metab Screen (NEGATIVE) U Marijuana (THC) Screen (NEGATIVE) SARS-CoV-2 RNA (YAMIL) (NEGATIVE) 08/04/20 08/05/20 08/05/20 Range/Units 19:00 05:25 05:25 WBC 6.37 (4.0-11.0) K/uL RBC 3.90 L (4.30-5.90) M/uL Hgb 11.7 L (12.0-16.0) g/dL Hct 36.5 (36.0-46.0) % MCV 93.6 (80.0-98.0) fL MCH 30.0 (27.0-32.0) pg MCHC 32.1 (31.0-37.0) g/dL RDW Std Deviation 47.1 (28.0-62.0) fl RDW Coeff of Mabel 14 (11.0-15.0) % Plt Count 280 (150-400) K/uL MPV 9.90 (7.40-12.00) fL Neut % (Auto) 49.3 (48.0-80.0) % Lymph % (Auto) 35.8 (16.0-40.0) % Baldwin % (Auto) 11.9 (0.0-15.0) % Eos % (Auto) 2.7 (0.0-7.0) % Baso % (Auto) 0.3 (0.0-1.5) % Neut # (Auto) 3.1 (1.4-5.7) K/uL Lymph # (Auto) 2.3 (0.6-2.4) K/uL Baldwin # (Auto) 0.8 (0.0-0.8) K/uL Eos # (Auto) 0.2 (0.0-0.7) K/uL Baso # (Auto) 0.0 (0.0-0.1) K/uL Nucleated RBC % 0.0 /100WBC Nucleated RBCs # 0 K/uL Lactate (0.20-2.00) mmol/L Sodium 142 (136-145) mmol/L Potassium 4.7 (3.5-5.1) mmol/L Chloride 107 (98-107) mmol/L Carbon Dioxide 25.2 (21.0-32.0) mmol/L BUN 9 (7.0-18.0) mg/dL Creatinine 0.8 (0.6-1.0) mg/dL Est Cr Clr Drug Dosing 88.15 mL/min Estimated GFR (MDRD) > 60.0 ml/min Glucose 73 L (74-106) mg/dL Calcium 8.6 (8.5-10.1) mg/dL Phosphorus (2.6-4.7) mg/dL Magnesium (1.8-2.4) mg/dL Total Bilirubin 0.2 (0.2-1.0) mg/dL AST 7 L (15-37) IU/L ALT 16 (14-63) IU/L Alkaline Phosphatase 38 L (46-116) U/L Total Protein 6.2 L (6.4-8.2) g/dL Albumin 3.3 L (3.4-5.0) g/dL Globulin 2.9 (2.6-4.0) g/dL Albumin/Globulin Ratio 1.1 (0.9-1.6) Lipase (73-393) U/L Urine Color Urine Appearance Urine pH (5.0-8.0) Ur Specific [place] (1.001-1.035) Urine Protein (NEGATIVE) mg/dL Urine Glucose (UA) (NEGATIVE) mg/dL Urine Ketones (NEGATIVE) mg/dL Urine Occult Blood (NEGATIVE) Urine Nitrite (NEGATIVE) Urine Bilirubin (NEGATIVE) Urine Urobilinogen (<2.0) EU/dL Ur Leukocyte Esterase (NEGATIVE) Urine HCG, Qual (NEGATIVE) Urine Opiates Screen (NEGATIVE) Ur Oxycodone Screen (NEGATIVE) Urine Methadone Screen (NEGATIVE) Ur Barbiturates Screen (NEGATIVE) Ur Phencyclidine Scrn (NEGATIVE) Ur Amphetamine Screen (NEGATIVE) U Methamphetamines Scrn (NEGATIVE) U Benzodiazepines Scrn (NEGATIVE) U Cocaine Metab Screen (NEGATIVE) U Marijuana (THC) Screen (NEGATIVE) SARS-CoV-2 RNA (YAMIL) NEGATIVE (NEGATIVE) Result Diagrams: 08/05/20 05:25 08/05/20 05:25 Sepsis Event Note - Evaluation Sepsis Screening Result: No Definite Risk - Focused Exam Vital Signs: Vital Signs Temp Pulse Resp BP Pulse Ox 08/05/20 11:00 97.8 F 71 16 117/65 98 08/05/20 07:35 97.5 F 70 16 111/64 98 08/05/20 04:00 97.6 F 80 18 105/65 97 - Problem List & Annotations (1) C. difficile diarrhea SNOMED Code(s): 6327127919179 Code(s): A04.72 - ENTEROCOLITIS D/T CLOSTRIDIUM DIFFICILE, NOT SPCF RECUR Status: Acute Current Visit: Yes (2) Abdominal pain SNOMED Code(s): 76081622 Code(s): R10.9 - UNSPECIFIED ABDOMINAL PAIN Status: Acute Current Visit: Yes (3) Fibromyalgia SNOMED Code(s): 058105867 Code(s): M79.7 - FIBROMYALGIA Status: Chronic Current Visit: Yes - Problem List Review Problem List Initiated/Reviewed/Updated: Yes - My Orders Last 24 Hours: My Active Orders 08/05/20 11:30 Pantoprazole [ProTONIX IV] 40 mg Sodium Chloride 0.9% [Normal Saline] 10 ml IV Q24H - Plan Plan:: This 24-year-old female admitted with C. difficile diarrhea and abdominal pain. 1. C. difficile diarrhea, second occurrence -Slow improvement -Continue LR's @ 100 cc/hr. -Continue clear liquid diet for now - morphine prn pain. -Continue PO vancomycin pulse-tapered regimen. 125 mg orally4 times daily for 10 to 14 days, then 125 mg orally twice daily for 7 days, then 125 mg orally once daily for 7 days, then 125 mg orally every 2 or 3 days for 2 to 8 weeks - CT abd/pelvis w/ contrast showed simple appearing left ovarian cyst (3.0 cm). No colitis or toxic megacolon noted. -Having some GERD-like symptoms we will give Protonix along with GI cocktail which did help this morning. -Referral to GI at [facility] in [place] sent per patient request 2. Fibromyalgia -Continue home medications of gabapentin and Effexor VTE prophylaxis: SCDs and ambulation CODE STATUS: Full code Dispo: 1 to 2 days pending improvement
[2020-08-05] MEDS ORDERED: Vancomycin 125 MG Cap PO SCH (20:15)
[2020-08-05] MEDS ORDERED: Venlafaxine 75 MG Cap.ER PO SCH (21:00)
[2020-08-06] MEDS: Vancomycin 125 MG Cap PO SCH ×3 (00:22→11:20)
[2020-08-06] MEDS: Gabapentin 300 MG Cap PO SCH ×3 (00:22→11:20)
[2020-08-06] MEDS: Acetaminophen 325 MG Tab PO PRN (00:45)
[2020-08-06 05:48] LABS: BLOOD UREA NITROGEN,BUN 6 mg/dL (7.0-18.0); CARBON DIOXIDE,CO2 26.7 mmol/L (21.0-32.0); CHLORIDE,CL 108 mmol/L (98-107); GLUCOSE RANDOM 84 mg/dL (74-106); POTASSIUM,K 3.9 mmol/L (3.5-5.1); SODIUM,NA 141 mmol/L (136-145)
[2020-08-06] MEDS: Lactated Ringers 1,000 ML IV SCH (07:56)
[2020-08-06] MEDS ORDERED: Ketorolac 30 MG/ML SDV IVPUSH ONE (08:10)
[2020-08-06] MEDS: Pantoprazole 40 MG in Sodium Chloride 0.9% 10 ML IV SCH (11:20)
--- NOTE | 2020-08-06 15:42 | PCM.DCSUM1 ---
Discharge Summary - Hospital Course Brief History: 24-year-old female presents today complaining of abdominal pain and cramping for the past 4 days. She has a PMH of kidney stones, fibromyalgia and recurrent C. diff. Patient reports that she was initially diagnosed with c. diff in mid June and completed a course of flagyl. She felt better for about 2-3 days then had recurrence of abdominal pain, diarrhea and was then treated for a first recurrence of c. diff with vancomycin for 10 days. She felt better for approximately 3 weeks but then started having diarrhea and abdominal pain once again approximately 1 week ago. Patient was seen by her PCP and submitted a stool sample on 07/29/20 which returned positive for c. diff toxin on 08/02/20. Her PCP recommended starting another longer course of vancomycin but patient was hesitant to start vancomycin again. Patient then notes that her diarrhea improved and has now not had a bowel movement in more than 24 hours. She decided to come to the ER today because of cramping abdominal pain that is diffuse but more so on the LUQ and LLQ. She has been able to tolerate fluids but has felt nauseous. She also reports having chills, sweats and urinary frequency. Denies having any fevers, sore throat, cough, SOB, chest pain, vomiting, blood in urine, numbness or tingling in extremities. In the ER, CBC and CMP unremarkable, lactate normal, UA unremarkable, UDS unremarkable. CT abd/pelvis showed left ovarian cyst (3cm). Patient was given IV 1 L LR bolus, fentanyl and zofran. She was admitted for further evaluation and treatment. - Discharge Data Discharge Date: 08/06/20 Discharge Disposition: Home, Self-Care 01 Condition: Stable - Referral to Home Health Primary Care Physician: Carlos Cooney MD - Discharge Diagnosis/Problem(s) (1) C. difficile diarrhea SNOMED Code(s): 2569432240322 ICD Code: A04.72 - ENTEROCOLITIS D/T CLOSTRIDIUM DIFFICILE, NOT SPCF RECUR Status: Acute Current Visit: Yes (2) Abdominal pain SNOMED Code(s): 93739137 ICD Code: R10.9 - UNSPECIFIED ABDOMINAL PAIN Status: Acute Current Visit: Yes (3) Fibromyalgia SNOMED Code(s): 285033702 ICD Code: M79.7 - FIBROMYALGIA Status: Chronic Current Visit: Yes - Patient Summary/Data Hospital Course: Admission diagnoses: Recurrent C. difficile Discharge diagnoses: Recurrent C. difficile Rachell was admitted and treated with IV fluids along with pain medication. She was also started on vancomycin 125 mg 4 times daily as part of a large taper. She was treated also some Protonix a GI cocktail due to some abdominal stomach pain. This seemed to improve after medication. She was able to tolerate soft diet today and is feeling much better and like to go home. She had 1 stool overnight which is more formed but continues to have upset stomach intermittently with mild nausea. She will be discharged home today with long taper of vancomycin starting with 125 4 times daily for 14 days then 125 for twice daily for 7 days and then once daily for another 7 days. She will need to see PCP for the remainder of taper. She will also have referral sent down to [facility] as she has now had second recurrence of C. difficile after antibiotic administration for acute pyelonephritis. She is to continue soft low fiber diet at this time. Return to the ER if continued concerns should arise sooner and follow-up with PCP as scheduled. - Patient Instructions Diet: GI Soft/Low Residue/Low Fiber Activity: As Tolerated, No Strenuous Activities Showering/Bathing: May Shower Notify Provider of: Fever, Increased Pain, Swelling and Redness, Drainage, Nausea and/or Vomiting Other/Special Instructions: Vancomycin taper. 125 mg orally4 times daily for 10 to 14 days, then 125 mg orally twice daily for 7 days, then 125 mg orally once daily for 7 days, then 125 mg orally every 2 or 3 days for 2 to 8 weeks - Discharge Plan *PRESCRIPTION DRUG MONITORING PROGRAM REVIEWED*: Not Applicable *COPY OF PRESCRIPTION DRUG MONITORING REPORT IN PATIENT JERED: Not Applicable Prescriptions/Med Rec: Vancomycin [Vancocin 125 MG Capsule] 125 mg PO QID #75 cap Home Medications: Home Meds Gabapentin [Neurontin] 600 mg PO QID 05/31/20 [History] Zolpidem [Ambien] 2.5 mg PO BEDTIME PRN 05/31/20 [History] norethindrone-e.estradioL-iron [Lo Loestrin Fe 1-10] 1 tab PO DAILY 05/31/20 [History] traMADol HCl [Tramadol HCl] 100 mg PO TID PRN 05/31/20 [History] Venlafaxine HCl [Venlafaxine ER] 75 mg PO DAILY 08/04/20 [History] Acetaminophen [Tylenol] 650 mg PO Q4H PRN tablet 08/06/20 [Rx] Vancomycin [Vancocin 125 MG Capsule] 125 mg PO QID #75 cap 08/06/20 [Rx] Oxygen Therapy Mode: Room Air Patient Handouts: Abdominal Pain, Adult, [id number] Referrals: Carlos Cooney MD [Primary Care Provider] - 08/13/20 9:45 am - Discharge Summary/Plan Comment DC Time >30 min.: No - Patient Data Vitals - Most Recent: Last Vital Signs Temp 97.6 F 08/06/20 11:53 Pulse 80 08/06/20 11:53 Resp 18 08/06/20 11:53 BP 100/68 08/06/20 11:53 Pulse Ox 95 08/06/20 11:53 Weight - Most Recent: 60.781 kg I&O - Last 24 hours: Intake & Output 08/06/20 08/06/20 08/06/20 06:59 14:59 22:59 Intake Total 2198 Output Total 800 Balance 1398 Lab Results - Last 24 hrs: Laboratory Results - last 24 hr 08/06/20 08/06/20 Range/Units 05:18 05:18 WBC 7.01 (4.0-11.0) K/uL RBC 3.68 L (4.30-5.90) M/uL Hgb 11.0 L (12.0-16.0) g/dL Hct 34.4 L (36.0-46.0) % MCV 93.5 (80.0-98.0) fL MCH 29.9 (27.0-32.0) pg MCHC 32.0 (31.0-37.0) g/dL RDW Std Deviation 46.4 (28.0-62.0) fl RDW Coeff of Mabel 14 (11.0-15.0) % Plt Count 272 (150-400) K/uL MPV 9.70 (7.40-12.00) fL Neut % (Auto) 57.7 (48.0-80.0) % Lymph % (Auto) 33.0 (16.0-40.0) % Cocke % (Auto) 7.3 (0.0-15.0) % Eos % (Auto) 1.9 (0.0-7.0) % Baso % (Auto) 0.1 (0.0-1.5) % Neut # (Auto) 4.1 (1.4-5.7) K/uL Lymph # (Auto) 2.3 (0.6-2.4) K/uL Cocke # (Auto) 0.5 (0.0-0.8) K/uL Eos # (Auto) 0.1 (0.0-0.7) K/uL Baso # (Auto) 0.0 (0.0-0.1) K/uL Nucleated RBC % 0.0 /100WBC Nucleated RBCs # 0 K/uL Sodium 141 (136-145) mmol/L Potassium 3.9 (3.5-5.1) mmol/L Chloride 108 H (98-107) mmol/L Carbon Dioxide 26.7 (21.0-32.0) mmol/L BUN 6 L (7.0-18.0) mg/dL Creatinine 0.7 (0.6-1.0) mg/dL Est Cr Clr Drug Dosing 100.74 mL/min Estimated GFR (MDRD) > 60.0 ml/min Glucose 84 (74-106) mg/dL Calcium 8.2 L (8.5-10.1) mg/dL Magnesium 2.0 (1.8-2.4) mg/dL Med Orders - Current: Current Medications Acetaminophen (Tylenol) 650 mg PO Q4H PRN PRN Reason: Pain (Mild 1-3)/fever Last Admin: 08/06/20 00:45 Dose: 650 mg Documented by: Gabapentin (Neurontin) 600 mg PO QID [facility] Last Admin: 08/06/20 11:20 Dose: 600 mg Documented by: Lactated Ringer's (Ringers, Lactated) 1,000 mls @ 100 mls/hr IV ASDIRECTED [facility] Last Admin: 08/06/20 07:56 Dose: 100 mls/hr Documented by: Pantoprazole Sodium 40 mg/ (Sodium Chloride) 10 mls @ 300 mls/hr IV Q24H [facility] Last Admin: 08/06/20 11:20 Dose: 300 mls/hr Documented by: Ondansetron HCl (Zofran) 4 mg IVPUSH Q4H PRN PRN Reason: Nausea Last Admin: 08/05/20 11:20 Dose: 4 mg Documented by: Norethindrone-E. Estradiol-Iron [Lo Loestrin Fe 1-10] 1 each PO BEDTIME [facility] Last Admin: 08/05/20 21:53 Dose: 1 each Documented by: Sodium Chloride (Saline Flush) 2.5 ml FLUSH ASDIRECTED PRN PRN Reason: Keep Vein Open Tramadol HCl (Ultram) 100 mg PO TID PRN PRN Reason: Pain Last Admin: 08/05/20 22:01 Dose: 100 mg Documented by: Vancomycin HCl (Vancocin 125 Mg Capsule) 125 mg PO QID [facility] Last Admin: 08/06/20 11:20 Dose: 125 mg Documented by: Venlafaxine HCl (Effexor Xr) 75 mg PO BEDTIME [facility] Last Admin: 08/05/20 21:53 Dose: 75 mg Documented by: Zaleplon (Sonata) 10 mg PO BEDTIME PRN PRN Reason: Insomnia Last Admin: 08/05/20 01:06 Dose: 10 mg Documented by: Discontinued Medications Al Hydroxide/Mg Hydroxide 15 (ml/ Lidocaine HCl 5 ml) 0 ml PO ONETIME ONE Stop: 08/05/20 11:46 Last Admin: 08/05/20 12:05 Dose: 1 each Documented by: Fentanyl (Fentanyl) 50 mcg IVPUSH ONETIME ONE Stop: 08/04/20 16:54 Last Admin: 08/04/20 17:52 Dose: 50 mcg Documented by: Lactated Ringer's (Ringers, Lactated) 1,000 mls @ 999 mls/hr IV .BOLUS ONE Stop: 08/04/20 17:53 Last Admin: 08/04/20 17:52 Dose: 999 mls/hr Documented by: Iopamidol (Isovue-370 (76%)) 100 ml IVPUSH ONETIME ONE Stop: 08/04/20 19:14 Last Admin: 08/04/20 19:14 Dose: 100 ml Documented by: Ketorolac Tromethamine (Toradol) 30 mg IVPUSH ONETIME ONE Stop: 08/06/20 08:11 Last Admin: 08/06/20 08:49 Dose: 30 mg Documented by: Morphine Sulfate (Morphine) 2 mg IVPUSH Q4H PRN PRN Reason: Pain (severe 7-10) Stop: 08/05/20 20:13 Morphine Sulfate (Morphine) 2 mg IVPUSH Q4H PRN PRN Reason: Pain (severe 7-10) Stop: 08/05/20 20:13 Last Admin: 08/04/20 21:27 Dose: 2 mg Documented by: Non-Formulary Medication (Norethindrone-E.Estradiol-Iron [Lo Loestrin Fe 1-10]) 1 tab PO DAILY [facility] Last Admin: 08/05/20 07:58 Dose: Not Given Documented by: Non-Formulary Medication (Norethindrone-E.Estradiol-Iron [Lo Loestrin Fe 1-10]) 1 tab PO DAILY [facility] Last Admin: 08/05/20 01:07 Dose: 1 tab Documented by: Ondansetron HCl (Zofran) 4 mg IVPUSH ONETIME ONE Stop: 08/04/20 16:54 Last Admin: 08/04/20 17:52 Dose: 4 mg Documented by: Norethindrone-E. Estradiol-Iron [Lo Loestrin Fe 1-10] 1 each PO DAILY [facility] Last Admin: 08/05/20 11:16 Dose: Not Given Documented by: Sodium Chloride (Saline Flush) 10 ml FLUSH ASDIRECTED PRN PRN Reason: Keep Vein Open Last Admin: 08/04/20 17:52 Dose: 10 ml Documented by: Sodium Chloride (Saline Flush) 2.5 ml FLUSH ASDIRECTED PRN PRN Reason: Keep Vein Open Last Admin: 08/04/20 17:52 Dose: 2.5 ml Documented by: Vancomycin HCl (Vancocin 125 Mg Capsule) 125 mg PO QID [facility] Venlafaxine HCl (Effexor Xr) 75 mg PO DAILY [facility] Last Admin: 08/05/20 11:16 Dose: Not Given Documented by: - Exam General: Reports: Alert, Oriented, Cooperative Lungs: Reports: Clear to Auscultation, Normal Respiratory Effort Cardiovascular: Reports: Regular Rate, Regular Rhythm GI/Abdominal Exam: Normal Bowel Sounds, Soft, Tender (Diffuse but has improved) Back Exam: Reports: Normal Inspection, Full Range of Motion. Denies: CVA Tenderness (L), CVA Tenderness (R) Wound/Incisions: Reports: Healing Well Neurological: Reports: No New Focal Deficit Psy/Mental Status: Reports: Alert, Normal Affect, Normal Mood
== END 2020-08-06 16:04 | disposition home or self-care (01) ==
LOC: MW.ED 16:04 → INTOOBSV 18:56 → MW.MS 18:56
PROVIDERS: ADMIT Internal Medicine; ATTEND Internal Medicine
DX: A04.71 Enterocolitis due to Clostridium difficile, recurrent (principal); M79.7 Fibromyalgia; Z88.6 Allergy status to analgesic agent; Z88.8 Allergy status to other drugs, medicaments and biological substances; Z87.442 Personal history of urinary calculi; Z87.440 Personal history of urinary (tract) infections; Z20.822 Contact with and (suspected) exposure to COVID-19; Z79.899 Other long term (current) drug therapy; Z98.890 Other specified postprocedural states
CPT/HCPCS: 36415; 74177; 80048; 80053; 80305; 81003; 81025; 83605; 83690; 83735; 84100; 85025; 87635; 96374; 96375; 99285; A9270; C9113; J1885; J2270; J2405; J3010; J7120; Q9967; 99217; 99219; 99225; 99283; U0002

== ENCOUNTER 2021-08-08 04:56 | Emergency (ER) | payer BC, OTHER ==
[2021-08-08] MEDS ORDERED: Ketorolac 30 MG/ML SDV IVPUSH ONE (05:07)
[2021-08-08] MEDS ORDERED: Lactated Ringers 1,000 ML IV STA (05:07)
[2021-08-08] MEDS ORDERED: Ondansetron 4 MG/2 ML SDV IVPUSH ONE (05:22)
[2021-08-08 05:31] LABS: BLOOD UREA NITROGEN,BUN 19 mg/dL (7.0-18.0); CARBON DIOXIDE,CO2 26.8 mmol/L (21.0-32.0); CHLORIDE,CL 103 mmol/L (98-107); GLUCOSE RANDOM 95 mg/dL (74-106); POTASSIUM,K 4.4 mmol/L (3.5-5.1); SODIUM,NA 139 mmol/L (136-145)
[2021-08-08] MEDS ORDERED: Cephalexin 500 MG Cap PO STA (05:41)
[2021-08-08] MEDS ORDERED: fentaNYL 50 MCG/ML SDV IVPUSH ONE (06:13)
[2021-08-08] MEDS ORDERED: Tamsulosin 0.4 MG Cap.ER PO ONE (06:29)
== END 2021-08-08 06:43 | disposition home or self-care (01) ==
LOC: MW.ED 04:56
DX: N13.2 Hydronephrosis with renal and ureteral calculous obstruction (principal); N39.0 Urinary tract infection, site not specified; Z88.5 Allergy status to narcotic agent; Z91.048 Other nonmedicinal substance allergy status; Z88.4 Allergy status to anesthetic agent; Z91.040 Latex allergy status
CPT/HCPCS: 36415; 74176; 80048; 81001; 81025; 85025; 87086; 96374; 96375; 99284; A9270; J1885; J2405; J3010; J7120

== ENCOUNTER 2021-09-13 08:27 | Day surgery (SDC) | payer BC ==
[~2021-09-13 08:27] MED LIST: Albuterol 0.083% 2.5 MG/3 ML Neb Soln NEB PRN; HYDROmorphone 1 MG/ML Syringe IVPUSH PRN; Lactated Ringers 1,000 ML IV SCH; Metoclopramide 10 MG/2 ML SDV IVPUSH PRN; Morphine 4 MG/ML VIAL IVPUSH PRN; Naloxone 0.4 MG/ML SDV IVPUSH PRN; Ondansetron 4 MG/2 ML SDV IVPUSH PRN; fentaNYL 100 MCG/2 ML SDV IVPUSH PRN
[2021-09-13] MEDS ORDERED: fentaNYL 100 MCG/2 ML SDV ONE ×2 (08:42→10:00)
[2021-09-13] MEDS ORDERED: Dexamethasone 4 MG/ML 5 ML MDV ONE (08:42)
[2021-09-13] MEDS ORDERED: Midazolam 1 MG/ML 2 ML SDV ONE (08:42)
[2021-09-13] MEDS ORDERED: Ondansetron 4 MG/2 ML SDV ONE (08:42)
[2021-09-13] MEDS ORDERED: Propofol 200 MG/20 ML SDV ONE (08:42)
[2021-09-13] MEDS ORDERED: Lidocaine 1% 5 ML VIAL ONE (08:42)
[2021-09-13] MEDS ORDERED: Lidocaine 1% with EPINEPHrine 1:100,000 10 ML MDV ONE (09:13)
[2021-09-13 09:43] LABS: BLOOD UREA NITROGEN,BUN 13 mg/dL (7.0-18.0); CARBON DIOXIDE,CO2 27.8 mmol/L (21.0-32.0); CHLORIDE,CL 104 mmol/L (98-107); GLUCOSE RANDOM 81 mg/dL (74-106); SODIUM,NA 137 mmol/L (136-145)
[2021-09-13] MEDS ORDERED: Ketorolac 30 MG/ML SDV ONE (09:47)
[2021-09-13] MEDS ORDERED: Acetaminophen/HYDROcodone 325-5 MG Tab PO PRN (10:24)
== END 2021-09-13 11:43 | disposition home or self-care (01) ==
LOC: MW.SDS 08:27
PROVIDERS: ATTEND Obstetrics & Gynecology
DX: N87.0 Mild cervical dysplasia (principal); N72 Inflammatory disease of cervix uteri; G43.909 Migraine, unspecified, not intractable, without status migrainosus; F32.A Depression, unspecified; Z91.040 Latex allergy status; Z79.899 Other long term (current) drug therapy; Z88.5 Allergy status to narcotic agent; Z88.8 Allergy status to other drugs, medicaments and biological substances
CPT/HCPCS: 36415; 57460; 80053; 81025; 85025; 86850; 86900; 86901; J0131; J1100; J1885; J2250; J2405; J2704; J3010; J7120; 00940

== ENCOUNTER 2022-09-08 23:51 | Emergency (ER) | payer SELFPAY ==
[2022-09-09] MEDS ORDERED: Amoxicillin 500 MG Cap PO ONE (00:32)
[2022-09-09] MEDS ORDERED: Acetaminophen 325 MG Tab PO ONE (00:32)
[2022-09-09] MEDS ORDERED: Ibuprofen 400 MG Tab PO ONE (00:32)
[2022-09-09] MEDS ORDERED: oxyCODONE 5 MG Tab PO ONE (00:32)
== END 2022-09-09 01:00 | disposition home or self-care (01) ==
LOC: MW.ED 23:51
DX: K08.89 Other specified disorders of teeth and supporting structures (principal); Z88.5 Allergy status to narcotic agent; Z91.048 Other nonmedicinal substance allergy status; Z88.6 Allergy status to analgesic agent; Z91.040 Latex allergy status
CPT/HCPCS: 99282; A9270

== ENCOUNTER 2024-08-15 07:05 | Emergency (ER) | payer SELFPAY ==
[2024-08-15] MEDS: Ondansetron 4 MG/2 ML SDV IVPUSH ONE (07:51)
[2024-08-15] MEDS: Sodium Chloride 0.9% 1,000 ML IV ONE ×2 (07:51→08:55)
[2024-08-15 07:54] LABS: BASOPHILS ABSOLUTE AUTO 0.03 K/uL (0.00-0.20); BASOPHILS PERCENT AUTO 0.6 % (0.0-1.0); EOSINOPHILS ABSOLUTE AUTO 0.14 K/uL (0.00-0.45); EOSINOPHILS PERCENT AUTO 2.9 % (0.0-6.0); HEMATOCRIT 38.9 % (37.0-47.0); HEMOGLOBIN 12.8 g/dL (12.0-16.0); IMMATURE GRAN ABSOLUTE AUTO 0.01 K/uL (0.00-0.05); IMMATURE GRAN PERCENT AUTO 0.2 % (0.0-0.4); LYMPHOCYTES ABSOLUTE AUTO 1.29 K/uL (1.00-4.80); LYMPHOCYTES PERCENT AUTO 26.7 % (24.0-44.0); MEAN CORPUSCULAR HEMOGLOBIN 30.2 pg (28.0-32.0); MEAN CORPUSCULAR HGB CONC 32.9 g/dL (32.0-36.0); MEAN CORPUSCULAR VOLUME 91.7 fL (83.0-99.0); MEAN PLATELET VOLUME 9.9 fL (9.4-12.3); MONOCYTES ABSOLUTE AUTO 0.42 K/uL (0.00-0.80); MONOCYTES PERCENT AUTO 8.7 % (0.0-8.0); NEUTROPHILS ABSOLUTE AUTO 2.95 K/uL (1.80-7.70); NEUTROPHILS PERCENT AUTO 60.9 % (41.0-71.0); PLATELET COUNT,PLT 269 K/uL (150-400); RED BLOOD CELL COUNT 4.24 M/uL (4.10-5.30); WHITE BLOOD CELL COUNT,WBC 4.84 K/uL (3.9-11.3)
[2024-08-15] MEDS ORDERED: HYDROmorphone 0.5 MG/0.5 ML Syringe IVPUSH ONE (08:03)
[2024-08-15] MEDS: droPERidol 2.5 MG/ML SDV IVPUSH PRN (08:20)
[2024-08-15 08:24] LABS: A/G RATIO 1.4 (0.9-1.6); ALBUMIN 4.4 g/dL (3.4-5.0); BILIRUBIN TOTAL 0.7 mg/dL (0.2-1.0); CALCIUM 9.3 mg/dL (8.5-10.1); CARBON DIOXIDE,CO2 25.1 mmol/L (21.0-32.0); CREATININE 0.8 mg/dL (0.6-1.0); EST CRCL DRUG DOSING (CG) 85.06 mL/min; POTASSIUM,K 4.2 mmol/L (3.5-5.1); PROTEIN TOTAL,TP 7.5 g/dL (6.4-8.2)
[2024-08-15] MEDS ORDERED: HYDROmorphone 0.5 MG/0.5 ML Syringe IVPUSH PRN (08:30)
[2024-08-15] MEDS: Acetaminophen 500 MG Tab PO ONE (08:55)
[2024-08-15] MEDS: Ketorolac 30 MG/ML SDV IVPUSH ONE (08:55)
[2024-08-15 10:01] LABS: APPEARANCE,URINE SLT CLOUDY; BILIRUBIN,URINE NEGATIVE (NEGATIVE); COLOR,URINE YELLOW; GLUCOSE,URINE NEGATIVE (NEGATIVE); KETONES,URINE NEGATIVE (NEGATIVE); LEUKOCYTE ESTERASE,URINE NEGATIVE (NEGATIVE); NITRITE,URINE NEGATIVE (NEGATIVE); OCCULT BLOOD,URINE LARGE (NEGATIVE); PH,URINE 6.5 (5.0-8.0); PROTEIN,URINE NEGATIVE (NEGATIVE); UROBILINOGEN,URINE 0.2 EU/dL (<2.0)
[2024-08-15] MEDS: Tamsulosin 0.4 MG Cap.ER PO ONE (10:13)
[2024-08-15 10:15] LABS: EPITHELIAL CELLS,URINE RARE (NONE-FEW); RBC,URINE 40-50 (0-2/HPF); WBC,URINE 0-3 (0-5/HPF)
[2024-08-15 10:16] LABS: BACTERIA,URINE RARE (NEGATIVE)
== END 2024-08-15 11:10 | disposition home or self-care (01) ==
LOC: MW.ED 07:05
DX: N13.2 Hydronephrosis with renal and ureteral calculous obstruction (principal); Z79.899 Other long term (current) drug therapy; Z88.5 Allergy status to narcotic agent; Z88.8 Allergy status to other drugs, medicaments and biological substances; Z91.040 Latex allergy status; Z91.048 Other nonmedicinal substance allergy status
CPT/HCPCS: 36415; 74176; 80053; 81001; 83605; 83690; 84703; 85025; 96361; 96374; 96375; 99284; A9270; J1790; J1885; J2405; J7030